=== PATIENT | female | born 1960 | race Caucasian/White ===

== ENCOUNTER 2023-05-08 14:31 | Observation (INO) | payer BC ==
--- NOTE | 2023-05-08 15:35 | ED ---
General Adult HPI - General Source: patient Mode of arrival: ambulatory Limitations: no limitations <Donna Conway - Last Filed: 05/08/23 15:32> - General Source: patient, RN notes reviewed <Carmine Smart - Last Filed: 05/08/23 20:28> - General Chief complaint: Shortness of Breath Stated complaint: SOB Time Seen by Provider: 05/08/23 15:30 - History of Present Illness Initial comments: Patient is a 63 year old female who presents to the emergency department for shortness of breath. Patient has COPD on prednisone prescribed by nutrition worker. No chest pain (Donna Conway) Patient is a 63-year-old female with past medical history remarkable for shortness of breath. She has history of COPD, emphysema, single cardiac stent. Presents complaining of exertional dyspnea. Has been on steroids for the last 2 weeks with some improvement in his to she stopped steroids becomes short of breath. He is not typically on oxygen. Denies any lower extremity swelling. Denies any chest pain. Denies abdominal pain, nausea, vomiting. Has no other acute complaints at this time. Presents for further evaluation of this time of concern for COPD exacerbation. Denies any productive cough. Esterase. Denies sick contacts. Normally obtains care in [place]. Patient originally seen as a quick note. (Carmine Smart) - Related Data Home Medications Medication Instructions Recorded Confirmed ALPRAZolam [Xanax] 0.25 mg PO BID PRN 05/08/23 05/08/23 Cholecalciferol (Vitamin D3) 125 mcg PO MOWEFR 05/08/23 05/08/23 [Vitamin D3 (125 MCG = 5,000 IU)] Escitalopram [Lexapro] 20 mg PO DAILY 05/08/23 05/08/23 Famotidine [Pepcid] 20 mg PO BID 05/08/23 05/08/23 Famotidine [Pepcid] 20 mg PO BID 05/08/23 05/08/23 Fluticasone/Vilanterol [Breo 1 puff INHALATION RT-DAILY 05/08/23 05/08/23 Ellipta 100-25 Mcg Inhaler] Ipratropium-Albuterol Nebulize 3 ml INHALATION RT-Q4H PRN 05/08/23 05/08/23 [Duoneb 0.5 mg-3 mg/3 ml Soln] Levothyroxine Sodium [Synthroid] 125 mg PO DAILY 05/08/23 05/08/23 Metoprolol Succinate (ER) [Toprol 25 mg PO DAILY 05/08/23 05/08/23 Xl] Rosuvastatin Calcium 5 mg PO DAILY 05/08/23 05/08/23 Ticagrelor [Brilinta] 90 mg PO BID 05/08/23 05/08/23 Zinc Gluconate [Zinc] 50 mg PO DAILY 05/08/23 05/08/23 buPROPion XL [Wellbutrin XL] 150 mg PO DAILY 05/08/23 05/08/23 predniSONE See Taper PO DIRECTED 05/08/23 05/08/23 Allergies Allergy/AdvReac Type Severity Reaction Status Date / Time No Known Allergies Allergy Verified 05/08/23 16:49 Review of Systems ROS Other: All systems not noted in ROS Statement are negative. <Donna Conway - Last Filed: 05/08/23 15:32> ROS Other: All systems not noted in ROS Statement are negative. <Carmine Smart - Last Filed: 05/08/23 20:28> ROS Statement: Those systems with pertinent positive or pertinent negative responses have been documented in the HPI. Review of Systems: CONST: Denies fever EYES: Denies blurry vision ENT: Denies nasal congestion C/V: Denies Chest pain RESP: Endorses dyspnea GI: Denies abdominal pain : Denies dysuria SKIN: Denies rash. MSK: Denies joint pain. NEURO: Denies headache (Carmine Smart) Past Medical History Past Medical History: COPD, Myocardial Infarction (CT), Thyroid Disorder History of Any Multi-Drug Resistant Organisms: None Reported Past Surgical History: Heart Catheterization With Stent Past Psychological History: No Psychological Hx Reported Smoking Status: Current every day smoker Past Alcohol Use History: Occasional Past Drug Use History: None Reported <Donna Conway - Last Filed: 05/08/23 15:32> General Exam Limitations: no limitations <Donna Conway - Last Filed: 05/08/23 15:32> <Carmine Smart - Last Filed: 05/08/23 20:28> - General Exam Comments Initial Comments: Visual Physical Exam Vital signs reviewed General: Well-appearing, nontoxic, no acute distress. Head: Normocephalic, atraumatic Eyes: PERRLA, EOMI ENT: Airway patent Chest: Nonlabored breathing Skin: No visual rash, normal skin tone Neuro: Alert and oriented 3 Musculoskeletal: No gross abnormalities (Donna Conway) General: Appears in no acute distress. HEAD: Normal with no signs of head trauma. EYES: PERRLA, EOMI, conjunctiva normal, no discharge. ENT: Hearing grossly intact, normal oropharynx. RESPIRATORY: End expiratory wheezing. Minimal hypoxia at rest, with pulse ox 93-96%. No dyspnea with discussion a short sentences. C/V: Regular rate and rhythm. S1 and S2 auscultated, no edema, peripheral pulses 2+ and intact throughout ABD: Abd is soft, nontender, nondistended EXT: Normal range of motion, no obvious deformity SKIN: No rashes or lesions observed on exposed skin. NEURO: Alert and oriented 4. (Carmine Smart) Course Vital Signs 05/08/23 05/08/23 05/08/23 14:49 16:32 16:42 Temperature 98.0 F 98.9 F Pulse Rate 102 H 84 83 Respiratory 22 20 Rate Blood Pressure 148/79 129/68 O2 Sat by Pulse 93 L 95 Oximetry 05/08/23 05/08/23 05/08/23 16:51 16:52 17:01 Temperature Pulse Rate 84 84 86 Respiratory Rate Blood Pressure O2 Sat by Pulse Oximetry 05/08/23 05/08/23 05/08/23 17:08 17:30 17:34 Temperature Pulse Rate 93 Respiratory 19 Rate Blood Pressure 130/75 O2 Sat by Pulse 96 89 L 96 Oximetry 05/08/23 05/08/23 05/08/23 18:09 19:03 19:37 Temperature 98.9 F Pulse Rate 98 93 102 H Respiratory 20 18 Rate Blood Pressure 128/68 126/67 O2 Sat by Pulse 93 L 93 L Oximetry 05/08/23 19:47 Temperature Pulse Rate 103 H Respiratory Rate Blood Pressure O2 Sat by Pulse Oximetry Medical Decision Making <Donna Conway - Last Filed: 05/08/23 15:32> - Lab Data Result diagrams: 05/08/23 15:52 05/08/23 15:52 - EKG Data -: EKG Interpreted by [place] <Carmine Smart - Last Filed: 05/08/23 20:28> - Medical Decision Making I performed the QuickNote portion of this chart - Donna Conway PA-C (Donna Conway) Was pt. sent in by a medical professional or institution (TOMMIE Clark, MANAGING SUPERVISOR, urgent care, hospital, or senior living...) When possible be specific @ -No Did you speak to anyone other than the patient for history (EMS, parent, family, police, friend...)? What history was obtained from this source @ -No Did you review nursing and triage notes (agree or disagree)? Why? @ -I reviewed and agree with nursing and triage notes Were old charts reviewed (outside hosp., previous admission, EMS record, old EKG, old radiological studies, urgent care reports/EKG's, senior living records)? Report findings @ -Reviewed quick note Differential Diagnosis (chest pain, altered mental status, abdominal pain women, abdominal pain men, vaginal bleeding, weakness, fever, dyspnea, syncope, headache, dizziness, GI bleed, back pain, seizure, CVA, palpatations, mental health, musculoskeletal)? @ -Differential Dyspnea: Coronary syndrome, arrhythmia, tamponade, asthma, COPD, pulmonary embolism, pneumonia, pneumothorax, pulmonary effusion, anaphylaxis, diabetic ketoacidosis, flailed chest, pulmonary contusion, diaphragmatic rupture, anemia, neuromuscu lar, this is not meant to be an all-inclusive list. EKG interpreted by me (3pts min.). @ -As above X-rays interpreted by me (1pt min.). @ -Chest x-ray shows chronic known COPD changes with right upper lobe scarring that the patient is well aware of. CT interpreted by me (1pt min.). @ -None done U/S interpreted by me (1pt. min.). @ -None done What testing was considered but not performed or refused? (CT, X-rays, U/S, labs)? Why? @ -None What meds were considered but not given or refused? Why? @ -None Did you discuss the management of the patient with other professionals (professionals i.e. TOMMIE Clark, MANAGING SUPERVISOR, lab, RT, psych nurse, elementary school social worker, pharmaceutical analyst, teacher, telecommunications officer, case checker)? Give summary @ -Discussed with the admitting team [facility] who accepted the patient. Was smoking cessation discussed for >3mins.? @ -No Was critical care preformed (if so, how long)? @ -No Were there social determinants of health that impacted care today? How? (Homelessness, low income, unemployed, alcoholism, drug addiction, transporta tion, low edu. Level, literacy, decrease access to med. care, snf, rehab)? @ -No Was there de-escalation of care discussed even if they declined (Discuss DNR or withdrawal of care, Hospice)? DNR status @ -No What co-morbidities impacted this encounter? (DM, HTN, Smoking, COPD, CAD, Cancer, CVA, ARF, Chemo, Hep., AIDS, mental health diagnosis, sleep apnea, morbid obesity)? @ -COPD Was patient admitted / discharged? Hospital course, mention meds given and route, prescriptions, significant lab abnormalities, going to OR and other pertinent info. @ -Based on the patient's presentation and physical exam, she presents with a somewhat acute on chronic shortness of breath. Was being treated for COPD back in [place] for the last 2-3 weeks and recently flew here from there. After she stopped her steroid burst, she began having worsening shortness of breath again. Presents for further evaluation. We will obtain screening EKG as well as basic labs, suffered swab, chest x-ray. This was all started in triage as a quick note. Patient will be given IV Solu-Medrol as well as multiple breathing treatments. She was in agreement this plan. Vital signs are within acceptable limits at this time. Patient's chest x-ray shows the chronic known findings that I discussed with the patient. She states she has received thorough workup for them. Patient's labs are within acceptable limits. Covid, flu, RSV negative. On reevaluation, with ambulatory pulse ox patient's oxygen drops to 88%, and she still is mildly wheezy despite multiple breathing treatments. Is improved on room air at rest to 95-97%. I discussed the findings with the patient. I would like to admitted to the hospital after discussing possible discharge home and she was in agreement with plan. She'll be admitted to observation on IV steroids with breathing treatments and pulmonology consult. She was in agreement with this plan. I spoke with the admitting team, [facility] who accepted the patient. Undiagnosed new problem with uncertain prognosis? @ -No Drug Therapy requiring intensive monitoring for toxicity (Heparin, Nitro, Insulin, Cardizem)? @ -No Were any procedures done? @ -No Diagnosis/symptom? @ -COPD Acute, or Chronic, or Acute on Chronic? @ -Acute on chronic Uncomplicated (without systemic symptoms) or Complicated (systemic symptoms)? @ -Complicated Side effects of treatment? @ -none Exacerbation, Progression, or Severe Exacerbation] @ -Exacerbation Poses a threat to life or bodily function? @ -Yes (Carmine Smart) - Lab Data Lab Results 05/08/23 05/08/23 05/08/23 Range/Units 15:52 15:52 16:29 WBC 9.1 (3.8-10.6) k/uL RBC 4.40 (3.80-5.40) m/uL Hgb 14.2 (11.4-16.0) gm/dL Hct 42.6 (34.0-46.0) % MCV 96.7 (80.0-100.0) fL MCH 32.2 (25.0-35.0) pg MCHC 33.3 (31.0-37.0) g/dL RDW 14.1 (11.5-15.5) % Plt Count 432 (150-450) k/uL MPV 6.7 Neutrophils % 86 % Lymphocytes % 7 % Monocytes % 3 % Eosinophils % 3 % Basophils % 0 % Neutrophils # 7.9 H (1.3-7.7) k/uL Lymphocytes # 0.6 L (1.0-4.8) k/uL Monocytes # 0.3 (0-1.0) k/uL Eosinophils # 0.3 (0-0.7) k/uL Basophils # 0.0 (0-0.2) k/uL Sodium 131 L (137-145) mmol/L Potassium 4.5 (3.5-5.1) mmol/L Chloride 98 (98-107) mmol/L Carbon Dioxide 23 (22-30) mmol/L Anion Gap 10 mmol/L BUN 13 (7-17) mg/dL Creatinine 0.70 (0.52-1.04) mg/dL Est GFR (CKD-EPI)AfAm >90 (>60 ml/min/1.73 sqM) Est GFR (CKD-EPI)NonAf >90 (>60 ml/min/1.73 sqM) Glucose 182 H (74-99) mg/dL Calcium 9.5 (8.4-10.2) mg/dL Total Bilirubin 0.5 (0.2-1.3) mg/dL AST 43 H (14-36) U/L ALT 30 (4-34) U/L Alkaline Phosphatase 78 (38-126) U/L Total Protein 6.9 (6.3-8.2) g/dL Albumin 3.8 (3.5-5.0) g/dL Influenza Type A (PCR) Not Detected (Not Detectd) Influenza Type B (PCR) Not Detected (Not Detectd) RSV (PCR) Not Detected (Not Detectd) SARS-CoV-2 (PCR) Not Detected (Not Detectd) - EKG Data EKG Comments: 12-lead Electrocardiogram Interpretation Note EKG was reviewed and interpreted by myself. 12-lead ECG performed at 1536 is interpreted by me as revealing normal sinus rhythm at a rate of 88 beats per minute. [place] is normal. SD Intervals 141 ms, QRS duration is 77 ms, QTc is 393 ms.. There were no ST or T wave abnormalities to suggest myocardial ischemia or injury. R wave progression across the precordium was satisfactory. By my interpretation this EKG is non-diagnostic for acute ischemia. (Carmine Smart) Disposition <Donna Conway - Last Filed: 05/08/23 15:32> Time of Disposition: 17:35 <Carmine Smart - Last Filed: 05/08/23 20:28> Clinical Impression: COPD (chronic obstructive pulmonary disease) Disposition: ADMITTED IP TO THIS HOSP Condition: Stable
[2023-05-08 16:00] LABS: Basophils % (A) 0 %; Eosinophils # (A) 0.3 k/uL (0-0.7); Eosinophils % (A) 3 %; HCT 42.6 % (34.0-46.0); HGB 14.2 gm/dL (11.4-16.0); Lymphocytes # (A) 0.6 k/uL (1.0-4.8); Lymphocytes % (A) 7 %; MCH 32.2 pg (25.0-35.0); MCHC 33.3 g/dL (31.0-37.0); MCV 96.7 fL (80.0-100.0); Mean Platelet Volume 6.7; Monocytes # (A) 0.3 k/uL (0-1.0); Monocytes % (A) 3 %; Neutrophils # (A) 7.9 k/uL (1.3-7.7); Neutrophils % (A) 86 %; Platelet Count 432 k/uL (150-450); RDW 14.1 % (11.5-15.5); WBC 9.1 k/uL (3.8-10.6)
--- NOTE | 2023-05-08 16:08 | XR ---
EXAMINATION TYPE: XR chest 2V DATE OF EXAM: 05/08/2023 4:01 PM COMPARISON: None TECHNIQUE: XR chest 2V Frontal and lateral views of the chest. CLINICAL INDICATION:Female, 63 years old with history of shortness of breath; FINDINGS: Lungs/Pleura: Right upper lobe scarring/consolidation identified. Hyperinflation. No pleural effusion or pneumothorax. Pulmonary vascularity: Unremarkable. Heart/mediastinum: Mediastinal shift to the right. Musculoskeletal: No acute osseous pathology. IMPRESSION: COPD changes with right upper lobe scarring/consolidation with associated volume loss. Underlying niurka plasm is not excluded. Consider further evaluation with CT chest unless prior imaging could be made a vailable.
[2023-05-08] MEDS ORDERED: IPRATROPIUM-ALBUTEROL 3 ML NEB INHALATION STA ×2 (16:14→16:15)
[2023-05-08] MEDS ORDERED: methylPREDNISolone SOD SUCCI 125 MG/2 ML VIAL IV STA (16:14)
[2023-05-08 16:28] LABS: ALT 30 U/L (4-34); AST 43 U/L (14-36); African American GFR (CKD) >90 (>60 ml/min/1.73 sqM); Albumin 3.8 g/dL (3.5-5.0); Alkaline Phosphatase 78 U/L (38-126); Anion Gap 10 mmol/L; Blood Urea Nitrogen 13 mg/dL (7-17); Calcium 9.5 mg/dL (8.4-10.2); Carbon Dioxide 23 mmol/L (22-30); Chloride 98 mmol/L (98-107); Glucose 182 mg/dL (74-99); Non-African American GFR(CKD) >90 (>60 ml/min/1.73 sqM); Potassium 4.5 mmol/L (3.5-5.1); Sodium 131 mmol/L (137-145); Total Bilirubin 0.5 mg/dL (0.2-1.3); Total Protein 6.9 g/dL (6.3-8.2)
[2023-05-08 16:33] VITALS: TEMP 98.9
[2023-05-08] MEDS ORDERED: NALOXONE 0.4 MG/ML 1 ML VIAL IV PRN (17:50)
[2023-05-08] MEDS: IPRATROPIUM-ALBUTEROL 3 ML NEB INHALATION SCH (19:37)
[2023-05-08] MEDS ORDERED: IPRATROPIUM-ALBUTEROL 3 ML NEB INHALATION PRN (20:24)
[2023-05-08] MEDS ORDERED: ALPRAZolam 0.25 MG TAB PO PRN (20:24)
[2023-05-08] MEDS ORDERED: methylPREDNISolone SOD SUCCI 40 MG/ML 1 ML VIAL IV SCH (21:00)
[2023-05-08] MEDS: METOPROLOL SUCCINATE (ER) 25 MG TAB.ER.24H PO SCH (21:06)
[2023-05-08] MEDS: FAMOTIDINE 20 MG TAB PO SCH (21:06)
[2023-05-08] MEDS: TICAGRELOR 90 MG TAB PO SCH (21:06)
[2023-05-09] MEDS: IPRATROPIUM-ALBUTEROL 3 ML NEB INHALATION SCH ×3 (00:31→08:28)
--- NOTE | 2023-05-09 04:12 | P.CNPUL ---
History of Present Illness Consult date: 05/09/23 Requesting physician: Carmine Smart Reason for consult: COPD Chief complaint: Shortness of breath History of present illness: I am seeing this patient in consultation today 05/09/2023 in the emergency room for suspected acute COPD exacerbation. Patient is a 63-year-old white female with past medical history significant for COPD, chronic nicotine dependence, hypertension, hyperlipidemia, coronary artery disease with previous coronary stent, GERD, hypothyroidism. Patient reportedly resides in [place], and follows with a local floor layer. She is in [place] visiting her children. She is on a combination of Breo-ellipta, when necessary Ventolin inhaler, and albuterol nebulizations [id number]. She continues to smoke approximately 5 cigarettes per day. The patient has reportedly had a recent hospital admission in [place], and was discharged on April 09. She was treated for a COPD exacerbation, and discharged on a prednisone taper. She states that her shortness of breath returned once tapering off her steroids. She says that the shortness breath has progressively worsened, and she came to the emergency room yesterday afternoon. She denies any cough, fever, chills, chest pain, hemoptysis. She is currently sitting up in bed, on room air, in no acute distress. Chest x-ray on arrival shows COPD-like changes with right upper lobe scarring/consolidation with associated volume loss. Underlying neoplasm was not excluded. The patient states that her established floor layer is following this, and states that she has had biopsies of this lesion in the past. Denies any history of cancer. She has a scheduled follow-up appointment with her floor layer in May. CBC on arrival was unremarkable. No leukocytosis. Patient is afebrile. BMP on arrival was also unremarkable. Negative for COVID- 19, RSV, influenza. Patient has been started on a combination of dual nebs, Symbicort inhaler, and IV Solu-Medrol. Patient states that she is already feeling better. She is on room air. Not particularly wheezy on auscultation. We will likely taper steroids. Vital signs are stable. Review of Systems REVIEW OF SYSTEMS: CONSTITUTIONAL: Denies any recent significant weight loss or weight gain. EYES: Denies change in vision. EARS, NOSE, MOUTH, THROAT: Denies headaches, denies sore throat. CARDIOVASCULAR: Denies chest pain, palpitations or syncopal episodes. RESPIRATORY: See HPI GASTROINTESTINAL: Denies change in appetite, abdominal pain, nausea and vomiting, or diarrhea GENITOURINARY: Denies hematuria, denies infections. MUSKULOSKELETAL: Denies pain, denies swelling. INTEGUMENTARY: Denies rash, denies eczema. NEUROLOGICAL: Denies recent memory loss, no recent seizure activity. PSYCHIATRIC: Denies anxiety, denies depression. HEMATOLOGIC/LYMPHATIC: Denies anemia, denies enlarged lymph node Past Medical History Past Medical History: COPD, Myocardial Infarction ([place]), Thyroid Disorder History of Any Multi-Drug Resistant Organisms: None Reported Past Surgical History: Heart Catheterization With Stent Past Psychological History: No Psychological Hx Reported Smoking Status: Current every day smoker Past Alcohol Use History: Occasional Past Drug Use History: None Reported Medications and Allergies Home Medications Medication Instructions Recorded Confirmed Type ALPRAZolam [Xanax] 0.25 mg PO BID PRN 05/08/23 05/08/23 History Cholecalciferol (Vitamin D3) 125 mcg PO MOWEFR 05/08/23 05/08/23 History [Vitamin D3 (125 MCG = 5,000 IU)] Escitalopram [Lexapro] 20 mg PO DAILY 05/08/23 05/08/23 History Famotidine [Pepcid] 20 mg PO BID 05/08/23 05/08/23 History Famotidine [Pepcid] 20 mg PO BID 05/08/23 05/08/23 History Fluticasone/Vilanterol [Breo 1 puff INHALATION RT-DAILY 05/08/23 05/08/23 History Ellipta 100-25 Mcg Inhaler] Ipratropium-Albuterol Nebulize 3 ml INHALATION RT-Q4H PRN 05/08/23 05/08/23 History [Duoneb 0.5 mg-3 mg/3 ml Soln] Levothyroxine Sodium [Synthroid] 125 mg PO DAILY 05/08/23 05/08/23 History Metoprolol Succinate (ER) [Toprol 25 mg PO DAILY 05/08/23 05/08/23 History Xl] Rosuvastatin Calcium 5 mg PO DAILY 05/08/23 05/08/23 History Ticagrelor [Brilinta] 90 mg PO BID 05/08/23 05/08/23 History Zinc Gluconate [Zinc] 50 mg PO DAILY 05/08/23 05/08/23 History buPROPion XL [Wellbutrin XL] 150 mg PO DAILY 05/08/23 05/08/23 History predniSONE See Taper PO DIRECTED 05/08/23 05/08/23 History Allergies Allergy/AdvReac Type Severity Reaction Status Date / Time No Known Allergies Allergy Verified 05/08/23 16:49 Physical Exam Vitals: Vital Signs Temp Pulse Resp BP Pulse Ox 05/09/23 03:34 73 16 129/74 93 L 05/09/23 01:11 88 18 125/74 100 05/09/23 00:41 83 05/09/23 00:31 85 05/08/23 22:48 80 18 108/56 93 L 05/08/23 21:10 101 H 18 120/55 96 05/08/23 19:47 103 H 05/08/23 19:37 102 H 05/08/23 19:03 93 18 126/67 93 L 05/08/23 18:09 98.9 F 98 20 128/68 93 L 05/08/23 17:34 96 05/08/23 17:30 89 L 05/08/23 17:08 93 19 130/75 96 05/08/23 17:01 86 05/08/23 16:52 84 05/08/23 16:51 84 05/08/23 16:42 83 05/08/23 16:32 98.9 F 84 20 129/68 95 05/08/23 14:49 98.0 F 102 H 22 148/79 93 L Intake and Output 05/08/23 05/08/23 05/09/23 14:59 22:59 06:59 Other: Weight 48.081 kg GENERAL EXAM: Alert, 63-year-old white female appearing stated age, comfortable in no apparent distress. HEAD: Normocephalic and atraumatic EYES: Normal reaction of pupils, equal size. NOSE: Clear with pink turbinates. THROAT: No erythema or exudates. NECK: No masses, no JVD. CHEST: No chest wall deformity. LUNGS: Equal air entry with diminished lung sounds throughout. no crackles, wheeze, rhonchi or focal dullness. On room air. No conversational dyspnea or accessory muscle use.. CVS: S1 and S2 normal with no audible murmur, regular rhythm. No extra heart sounds ABDOMEN: No hepatosplenomegaly, active bowel sounds, no guarding or rigidity. SPINE: No scoliosis or deformity SKIN: No rashes CENTRAL NERVOUS SYSTEM: No focal deficits, tone is normal in all 4 extremities. EXTREMITIES: There is no peripheral edema, clubbing, or cyanosis. Peripheral pulses are intact. Results - Laboratory Findings CBC and BMP: 05/08/23 15:52 05/08/23 15:52 Abnormal lab findings: Abnormal Labs 05/08/23 05/08/23 15:52 15:52 Neutrophils # 7.9 H Lymphocytes # 0.6 L Sodium 131 L Glucose 182 H AST 43 H - Diagnostic Findings Chest x-ray: image reviewed Assessment and Plan Assessment: Acute COPD exacerbation, hest x-ray on arrival shows COPD-like changes with right upper lobe scarring/consolidation with associated volume loss. Underlying neoplasm was not excluded. The patient states that her established pulmonologis t is following this, and states that she has had biopsies of this lesion in the past. Negative for influenza, RSV, COVID-19. Hyperglycemia, related to steroids Essential hypertension Hyperlipidemia Coronary artery disease with previous coronary stenting GERD Hypothyroidism Chronic nicotine dependence Plan: Patient's medications, labs, chest x-ray reviewed Continue combination of DuoNeb's, Symbicort inhaler, and start prednisone taper On room air May follow-up with her established floor layer in regards to chronic right upper lobe scarring Smoking cessation counseling performed Nicotine replacement offered Appears hemodynamically stable Anticipate discharge in the next 24 hours. I have personally seen and examined the patient, performed the documentation and the assessment and plan as written. Number of minutes spent on the visit:20 Time with Patient: Greater than 30
[2023-05-09 05:19] VITALS: RESP 18
[2023-05-09 06:22] VITALS: BP 144/80
[2023-05-09] MEDS ORDERED: LEVOTHYROXINE 125 MCG TAB PO SCH (06:30)
[2023-05-09] MEDS ORDERED: DEXTROSE 50% SYRINGE 50 ML IVP PRN ×2 (07:16)
[2023-05-09] MEDS ORDERED: INSULIN ASPART (NovoLOG) 100 UNIT/ML VIAL SQ SCH (07:30)
[2023-05-09] MEDS ORDERED: SYMBICORT 160-4.5 MCG INHALER INHALATION SCH (08:00)
[2023-05-09] MEDS ORDERED: SYMBICORT 80-4.5 MCG INHALER INHALATION SCH (08:00)
--- NOTE | 2023-05-09 08:07 | P.HPIM ---
History of Present Illness Please consider this note asked combined H&P and discharge summary This is a pleasant 63 years old female with past medical history of nicotine dependence, COPD, coronary artery disease status post stenting and hypothyroidism Patient presents because of dyspnea worsen with exertion Patient says that she has shortness of breath for a few weeks and is getting worse over the last few days, this morning she started having dry cough in. She denies abdominal pain or chest pain. No urinary symptoms. Smokes about 5 cigarettes per day. She was counseled to quit and she agrees but declines nicotine patch. She denies alcohol or illicit drugs. She states that she is aware about her lesion in the right upper lung and that her milled rice broker follow-up lesion and she intends to see him when she goes back to [place] next week Patient is afebrile and vital signs stable and he is saturating 93% on room air Labs are unremarkable CBC, BMP, liver enzymes except for mildly low sodium 131 and glucose 182 Viruses and detected including influenza, RSV, coronavirus EKG showing T-wave inversion in V1 and V2, no other significant ST-T changes, sinus rhythm at 88 Chest x-ray: COPD changes, I reviewed myself. Radiology report there is right upper lobe scarring/consolidation with associated volume loss underlying neoplasm is not excluded Review of Systems CONSTITUTIONAL: No fever, no malaise, no fatigue. HEENT: No recent visual problems or hearing problems. Denied any sore throat. CARDIOVASCULAR: No orthopnea, PND, no palpitations, no syncope. PULMONARY: No chest wall tenderness, no hemoptysis. GASTROINTESTINAL: No diarrhea, no nausea, no vomiting, no abdominal pain. Normoactive bowel sounds. NEUROLOGICAL: No headaches, no weakness, no numbness. HEMATOLOGICAL: Denies any bleeding or petechiae. GENITOURINARY: Denies any burning micturition, frequency, or urgency. MUSCULOSKELETAL/RHEUMATOLOGICAL: Denies any joint pain, swelling, or any muscle pain. ENDOCRINE: Denies any polyuria or polydipsia. Past Medical History Past Medical History: COPD, Myocardial Infarction ([place]), Thyroid Disorder History of Any Multi-Drug Resistant Organisms: None Reported Past Surgical History: Heart Catheterization With Stent Past Psychological History: No Psychological Hx Reported Smoking Status: Current every day smoker Past Alcohol Use History: Occasional Past Drug Use History: None Reported Medications and Allergies Home Medications Medication Instructions Recorded Confirmed Type ALPRAZolam [Xanax] 0.25 mg PO BID PRN 05/08/23 05/08/23 History Cholecalciferol (Vitamin D3) 125 mcg PO MOWEFR 05/08/23 05/08/23 History [Vitamin D3 (125 MCG = 5,000 IU)] Escitalopram [Lexapro] 20 mg PO DAILY 05/08/23 05/08/23 History Famotidine [Pepcid] 20 mg PO BID 05/08/23 05/08/23 History Famotidine [Pepcid] 20 mg PO BID 05/08/23 05/08/23 History Fluticasone/Vilanterol [Breo 1 puff INHALATION RT-DAILY 05/08/23 05/08/23 History Ellipta 100-25 Mcg Inhaler] Levothyroxine Sodium [Synthroid] 125 mg PO DAILY 05/08/23 05/08/23 History Metoprolol Succinate (ER) [Toprol 25 mg PO DAILY 05/08/23 05/08/23 History XL] Rosuvastatin Calcium 5 mg PO DAILY 05/08/23 05/08/23 History Ticagrelor [Brilinta] 90 mg PO BID 05/08/23 05/08/23 History Zinc Gluconate [Zinc] 50 mg PO DAILY 05/08/23 05/08/23 History buPROPion XL [Wellbutrin XL] 150 mg PO DAILY 05/08/23 05/08/23 History Ipratropium-Albuterol Nebulize 3 ml INHALATION RT-Q4H PRN #1 each 05/09/23 Rx [Duoneb 0.5 mg-3 mg/3 ml Soln] predniSONE 10 mg PO DIRECTED #40 tab 05/09/23 Rx Allergies Allergy/AdvReac Type Severity Reaction Status Date / Time No Known Allergies Allergy Verified 05/08/23 16:49 Physical Exam Vitals: Vital Signs Temp Pulse Resp BP Pulse Ox 05/09/23 06:20 95 18 144/80 95 05/09/23 05:46 90 05/09/23 05:36 82 05/09/23 05:17 71 18 125/90 93 L 05/09/23 03:34 73 16 129/74 93 L 05/09/23 01:11 88 18 125/74 100 05/09/23 00:41 83 05/09/23 00:31 85 05/08/23 22:48 80 18 108/56 93 L 05/08/23 21:10 101 H 18 120/55 96 05/08/23 19:47 103 H 05/08/23 19:37 102 H 05/08/23 19:03 93 18 126/67 93 L 05/08/23 18:09 98.9 F 98 20 128/68 93 L 05/08/23 17:34 96 05/08/23 17:30 89 L 05/08/23 17:08 93 19 130/75 96 05/08/23 17:01 86 05/08/23 16:52 84 05/08/23 16:51 84 05/08/23 16:42 83 05/08/23 16:32 98.9 F 84 20 129/68 95 05/08/23 14:49 98.0 F 102 H 22 148/79 93 L GENERAL: The patient is alert and oriented x3, not in any acute distress. Well developed, well nourished. HEENT: Pupils are round and equally reacting to light. EOMI. No scleral icterus. No conjunctival pallor. Normocephalic, atraumatic. No pharyngeal erythema. No thyromegaly. CARDIOVASCULAR: S1 and S2 present. No murmurs, rubs, or gallops. -PULMONARY: Chest is clear to auscultation very mild and minimal , bilateral expiratory scattered wheezing , no crackles. ABDOMEN: Soft, nontender, nondistended, normoactive bowel sounds. No palpable organomegaly. MUSCULOSKELETAL: No joint swelling or deformity. EXTREMITIES: No cyanosis, clubbing, or pedal edema. NEUROLOGICAL: Gross neurological examination did not reveal any focal deficits. SKIN: No rashes. no petechiae. Results CBC & Chem 7: 05/08/23 15:52 05/08/23 15:52 Labs: Abnormal Lab Results - Last 24 Hours (Table) 05/08/23 05/08/23 Range/Units 15:52 15:52 Neutrophils # 7.9 H (1.3-7.7) k/uL Lymphocytes # 0.6 L (1.0-4.8) k/uL Sodium 131 L (137-145) mmol/L Glucose 182 H (74-99) mg/dL AST 43 H (14-36) U/L Assessment and Plan Assessment: Acute COPD exacerbation Acute hypoxic respiratory failure, mild. right upper lobe scarring/consolidation with associated volume loss underlying neoplasm is not excluded. Patient is aware with this problem and he follow-up with his milled rice broker in [place] History of coronary artery disease status post stenting Hypothyroidism Plan: Continue with steroids Bronchodilator Pulmonary consult I discussed the case with pulmonary team and their input is appreciated. Pulmonary team has cleared the patient for discharge this morning on tapered to steroids. Labs and medication were reviewed.. Continue same treatment. Continue with symptomatic treatment. Resume home medication. Monitor labs and vitals. DVT and GI prophylaxis. Further recommendations as per clinical course of the patient Patient is medically stable and can be discharged home however she needs follow- up as an outpatient Patient was instructed to follow up with her PCP in one week after discharge Patient also was instructed to follow up with milled rice broker Dr. comer in 1 week after discharge and with her own milled rice broker in [place] in 1-2 weeks when she goes back and she agrees to call me forAppointments She told me she has all her prescription and she wants only that tapered prednisone and duonebs nebulizer prescription which is sent to the pharmacy
[2023-05-09 08:41] VITALS: PULSE 92
[2023-05-09] MEDS ORDERED: METOPROLOL SUCCINATE (ER) 25 MG TAB.ER.24H PO SCH (09:00)
[2023-05-09] MEDS ORDERED: ATORVASTATIN 10 MG TAB PO SCH (09:00)
[2023-05-09] MEDS ORDERED: buPROPion XL 150 MG TAB.ER.24H PO SCH (09:00)
[2023-05-09] MEDS ORDERED: ZINC SULFATE 220 MG CAP PO SCH (09:00)
[2023-05-09] MEDS ORDERED: predniSONE 20 MG TAB PO SCH (09:00)
[2023-05-09 09:20] LABS: Glucose,Whole Blood 112 mg/dL (70-110)
[2023-05-09] MEDS: FAMOTIDINE 20 MG TAB PO SCH (09:21)
[2023-05-09] MEDS: METOPROLOL SUCCINATE (ER) 25 MG TAB.ER.24H PO SCH (09:21)
[2023-05-09] MEDS: TICAGRELOR 90 MG TAB PO SCH (09:21)
[2023-05-09 12:02] LABS: Basophils # (A) 0.01 X 10*3/uL (0.00-0.10); Basophils % (A) 0.2 %; Eosinophils # (A) 0 X 10*3/uL (0.04-0.35); Eosinophils % (A) 0 %; HCT 41.5 % (37.2-46.3); HGB 13.6 d/dL (12.0-15.0); Lymphocytes # (A) 0.81 X 10*3/uL (0.90-5.00); Lymphocytes % (A) 12.7 %; MCH 31.9 pg (27.0-32.0); MCHC 32.8 d/dL (32.0-37.0); MCV 97.2 FL (80.0-97.0); Mean Platelet Volume 8.4 FL (9.5-12.2); Monocytes # (A) 0.14 X 10*3/uL (0.20-1.00); Monocytes % (A) 2.2 %; NRBC Per 100 WBC 0 X 10*3/uL (0.00-0.01); Neutrophils # (A) 5.34 X 10*3/uL (1.80-7.70); Neutrophils % (A) 83.8 %; Platelet Count 501 X 10*3/uL (140-440); RBC 4.27 X 10*6/uL (4.10-5.20); RDW 14.9 % (11.5-14.5); WBC 6.37 X 10*3/uL (4.50-10.00)
[2023-05-09 12:09] LABS: BUN/Creat Ratio 13.14 Ratio (12.00-20.00); Blood Urea Nitrogen 9.2 mg/dL (9.0-27.0); Calcium 9.6 mg/dL (8.7-10.3); Carbon Dioxide 23.9 mmol/L (21.6-31.8); Chloride 99 mmol/L (96-109); Glucose 113 mg/dL (70-110); Potassium 4.4 mmol/L (3.5-5.5); Sodium 135 mmol/L (135-145)
== END 2023-05-09 10:04 | disposition home or self-care (01) ==
LOC: EC 14:31 → 6NMEDSUR 17:50
PROVIDERS: ADMIT Hospitalist; ATTEND Hospitalist
DX: J44.1 Chronic obstructive pulmonary disease with (acute) exacerbation (principal); J96.01 Acute respiratory failure with hypoxia; R73.9 Hyperglycemia, unspecified; T38.0X5A Adverse effect of glucocorticoids and synthetic analogues, initial encounter; I10 Essential (primary) hypertension; E78.5 Hyperlipidemia, unspecified; I25.10 Atherosclerotic heart disease of native coronary artery without angina pectoris; K21.9 Gastro-esophageal reflux disease without esophagitis; E03.9 Hypothyroidism, unspecified; I25.2 Old myocardial infarction; F17.210 Nicotine dependence, cigarettes, uncomplicated; Z95.5 Presence of coronary angioplasty implant and graft; Z79.899 Other long term (current) drug therapy; Z79.02 Long term (current) use of antithrombotics/antiplatelets; Z79.52 Long term (current) use of systemic steroids; Z20.822 Contact with and (suspected) exposure to COVID-19
CPT/HCPCS: 96376; 96374; 99285; 36415; 94640 ×3; 93005; 80053; 80048; 85025 ×2; 87636; 71046; G0378 ×2; J2920; J2930; J7512

== ENCOUNTER 2025-01-08 21:47 | Inpatient (IN) | payer BC ==
[2025-01-08] MEDS: methylPREDNISolone SOD SUCCI 125 MG/2 ML VIAL IV STA (23:18)
[2025-01-08] MEDS: MAGNESIUM SULFATE-D5W PMX 1 GM in DEXTROSE/WATER 1 100ML.BAG IVPB ONE (23:22)
[2025-01-08 23:29] LABS: Basophils # (A) 0.04 10*3/uL (0.00-0.10); Basophils % (A) 0.5 %; Eosinophils # (A) 0.02 10*3/uL (0.04-0.35); Eosinophils % (A) 0.3 %; HCT 38.1 % (37.2-46.3); HGB 13.1 g/dL (12.0-15.0); Lymphocytes # (A) 1.13 10*3/uL (0.90-5.00); Lymphocytes % (A) 14.9 %; MCH 32.5 pg (27.0-32.0); MCHC 34.4 g/dL (32.0-37.0); MCV 94.5 fL (80.0-97.0); Mean Platelet Volume 8.3 fL (9.5-12.2); Monocytes # (A) 0.74 10*3/uL (0.20-1.00); Monocytes % (A) 9.8 %; Neutrophils # (A) 5.62 10*3/uL (1.80-7.70); Neutrophils % (A) 74.1 %; Platelet Count 306 10*3/uL (140-440); RBC 4.03 10*6/uL (4.10-5.20); RDW 14.6 % (11.5-14.5); WBC 7.58 10*3/uL (4.50-10.00)
[2025-01-08] MEDS: IPRATROPIUM-ALBUTEROL 3 ML NEB INHALATION STA (23:44)
[2025-01-08 23:47] LABS: African American GFR (CKD) >90 (>60 ml/min/1.73 sqM); Anion Gap 5 mmol/L; Carbon Dioxide 23 mmol/L (22-30); Chloride 97 mmol/L (98-107); Glucose 86 mg/dL (74-99); Non-African American GFR(CKD) 78 (>60 ml/min/1.73 sqM); Potassium 4.7 mmol/L (3.5-5.1); Sodium 125 mmol/L (137-145); Total Protein 6.8 g/dL (6.3-8.2)
[2025-01-08 23:48] LABS: ALT 23 U/L (4-34); AST 39 U/L (14-36); Alkaline Phosphatase 48 U/L (38-126); Blood Urea Nitrogen 11 mg/dL (7-17); Calcium 9.6 mg/dL (8.4-10.2); Total Bilirubin 0.5 mg/dL (0.2-1.3)
[2025-01-09 00:02] LABS: Influenza A Not Detected (Not Detectd); Influenza B Not Detected (Not Detectd); RSV Detected (Not Detectd)
--- NOTE | 2025-01-09 01:21 | ED ---
SOB HPI - General Chief Complaint: Shortness of Breath Stated Complaint: JEWELL Time Seen by Provider: 01/08/25 21:50 Source: patient Mode of arrival: wheelchair Limitations: no limitations - History of Present Illness Initial Comments: 64-year-old female with past medical history of coronary disease with stent placement, COPD who wears 2 L home O2 when needed presents to the emergency department with shortness of breath. Patient is from [place]. States that previous to her traveling she did obtain a prescription for prednisone and Levaquin in the event that her breathing got worse. Patient states that she started taking the medications 9 days ago due to cough and increased work of breathing but states that her symptoms have not improved. She does use DuoNebs nebulizer treatments and last treatment was at 7 PM. She also has an albuterol inhaler. Patient does have a history of coronary disease with stent placement. Denies any chest pain. No fevers. Does admit to a cough with green productive sputum. No sick contacts. Recently drove from [place] to [place]. Denies any calf pain or swelling. No history of DVT or PE. Denies any additional symptoms to include abdominal pain, nausea, vomiting. No other alleviating, pre cipitating or modifying factors - Related Data Home Medications Medication Instructions Recorded Confirmed ALPRAZolam [Xanax] 0.25 mg PO BID PRN 01/09/25 01/09/25 Azithromycin [Zithromax] 500 mg PO MOWEFR 01/09/25 01/09/25 Budesonide/Glycopyr/Formoterol 2 puff INHALATION RT-BID 01/09/25 01/09/25 [Breztri Aerosphere Inhaler] Clopidogrel [Plavix] 75 mg PO Q2D@2100 01/09/25 01/09/25 Dupilumab [Dupixent Pen] 300 mg SQ Q14D 01/09/25 01/09/25 Ipratropium-Albuterol Nebulize 3 ml INHALATION RT-Q6H PRN 01/09/25 01/09/25 [Duoneb 0.5 mg-3 mg/3 ml Soln] Levothyroxine Sodium [Synthroid] 62.5 mcg PO MOWEFR 01/09/25 01/09/25 Levothyroxine Sodium [Synthroid] 125 mcg PO SUTUTHSA 01/09/25 01/09/25 Metoprolol Succinate (ER) [Toprol 25 mg PO HS 01/09/25 01/09/25 Xl] Omeprazole 20 mg PO DAILY 01/09/25 01/09/25 Rosuvastatin [Crestor] 20 mg PO HS 01/09/25 01/09/25 buPROPion XL [Wellbutrin XL] 150 mg PO DAILY 01/09/25 01/09/25 Allergies Allergy/AdvReac Type Severity Reaction Status Date / Time No Known Allergies Allergy Verified 01/08/25 21:53 Review of Systems ROS Statement: Those systems with pertinent positive or pertinent negative responses have been documented in the HPI. ROS Other: All systems not noted in ROS Statement are negative. Past Medical History Past Medical History: COPD, Myocardial Infarction ([place]), Thyroid Disorder History of Any Multi-Drug Resistant Organisms: None Reported Past Surgical History: Heart Catheterization With Stent Past Psychological History: No Psychological Hx Reported Smoking Status: Current every day smoker Past Alcohol Use History: Daily Past Drug Use History: None Reported General Exam Limitations: no limitations General appearance: alert, in no apparent distress Head exam: Present: atraumatic, normocephalic, normal inspection Eye exam: Present: normal appearance, PERRL, EOMI. Absent: scleral icterus, conjunctival injection, periorbital swelling ENT exam: Present: normal exam, mucous membranes moist Neck exam: Present: normal inspection. Absent: tenderness, meningismus, lymphadenopathy Respiratory exam: Present: decreased breath sounds. Absent: respiratory distress, wheezes, rales, rhonchi, stridor Cardiovascular Exam: Present: regular rate, normal rhythm, normal heart sounds. Absent: systolic murmur, diastolic murmur, rubs, gallop, clicks GI/Abdominal exam: Present: soft, normal bowel sounds. Absent: distended, tenderness, guarding, rebound, rigid Extremities exam: Present: normal inspection, full ROM, normal capillary refill. Absent: tenderness, pedal edema, joint swelling, calf tenderness Back exam: Present: normal inspection Neurological exam: Present: alert, oriented X3, CN II-XII intact Psychiatric exam: Present: normal affect, normal mood Skin exam: Present: warm, dry, intact, normal color. Absent: rash Course Vital Signs 01/08/25 01/08/25 01/08/25 21:49 23:45 23:52 Temperature 98.5 F Pulse Rate 96 80 84 Pulse Rate [ Pulse Oximetery ] Respiratory 26 H Rate Blood Pressure 141/78 Blood Pressure [Supine] O2 Sat by Pulse 96 Oximetry 01/09/25 01/09/25 00:33 02:23 Temperature 97.7 F Pulse Rate 76 Pulse Rate [ 80 Pulse Oximetery ] Respiratory 20 19 Rate Blood Pressure 150/91 Blood Pressure 157/77 [Supine] O2 Sat by Pulse 98 94 L Oximetry Medical Decision Making - Medical Decision Making Was pt. sent in by a medical professional or institution (, PA, STRATEGIC PARTNER DEVELOPMENT MANAGER, urgent care, hospital, or alf...) When possible be specific @ -No Did you speak to anyone other than the patient for history (EMS, parent, family, police, friend...)? What history was obtained from this source @ -Spoke with her for history Did you review nursing and triage notes (agree or disagree)? Why? @ -I reviewed and agree with nursing and triage notes Were old charts reviewed (outside hosp., previous admission, EMS record, old EKG, old radiological studies, urgent care reports/EKG's, alf records)? Report findings @ -No old charts were reviewed Differential Diagnosis (chest pain, altered mental status, abdominal pain women, abdominal pain men, vaginal bleeding, weakness, fever, dyspnea, syncope, headache, dizziness, GI bleed, back pain, seizure, CVA, palpatations, mental he alth, musculoskeletal)? @ -Differential Dyspnea: Coronary syndrome, arrhythmia, tamponade, asthma, COPD, pulmonary embolism, pneumonia, pneumothorax, pulmonary effusion, anaphylaxis, diabetic ketoacidosis, flailed chest, pulmonary contusion, diaphragmatic rupture, anemia, neuromuscular, this is not meant to be an all-inclusive list. EKG interpreted by me (3pts min.). @ -Yes and demonstrates sinus rhythm with rate of 85. MO interval 133. QRS 80. QTc of 391. No acute ST segment elevations or depressions X-rays interpreted by me (1pt min.). @ -Yes which demonstrates chronic right upper lobe scarring CT interpreted by me (1pt min.). @ -None done U/S interpreted by me (1pt. min.). @ -None done What testing was considered but not performed or refused? (CT, X-rays, U/S, labs)? Why? @ -None What meds were considered but not given or refused? Why? @ -None Did you discuss the management of the patient with other professionals (professionals i.e. DrBonifacio, PA, STRATEGIC PARTNER DEVELOPMENT MANAGER, lab, RT, psych nurse, protective services social worker, backup sawyer, teacher, airconditioning drafting officer, telephonic nurse case manager)? Give summary @ -Spoke with Dr. Merrill for the admission Was smoking cessation discussed for >3mins.? @ -No Was critical care preformed (if so, how long)? @ -No Were there social determinants of health that impacted care today? How? ( Homelessness, low income, unemployed, alcoholism, drug addiction, transportation, low edu. Level, literacy, decrease access to med. care, shelter, rehab)? @ -No Was there de-escalation of care discussed even if they declined (Discuss DNR or withdrawal of care, Hospice)? DNR status @ -No What co-morbidities impacted this encounter? (DM, HTN, Smoking, COPD, CAD, Cancer, CVA, ARF, Chemo, Hep., AIDS, mental health diagnosis, sleep apnea, morbid obesity)? @ -COPD Was patient admitted / discharged? Hospital course, mention meds given and route, prescriptions, significant lab abnormalities, going to OR and other pertinent info. @ -Upon arrival patient seen and evaluated in bed 17. Thorough history and physical exam was performed. IV was established. Laboratory studies are conducted. Chest x-ray was performed. Patient test positive for RSV. She is already on steroids and antibiotics with continued increased work of breathing. I did recommend admission for IV steroids and breathing treatments which patient was agreeable. Spoke with Dr. Merrill for the admission Undiagnosed new problem with uncertain prognosis? @ -No Drug Therapy requiring intensive monitoring for toxicity (Heparin, Nitro, Insulin, Cardizem)? @ -No Were any procedures done? @ -No Diagnosis/symptom? @ -Acute respiratory insufficiency, chronic respiratory failure, acute RSV bronchitis Acute, or Chronic, or Acute on Chronic? @ -Acute on chronic Uncomplicated (without systemic symptoms) or Complicated (systemic symptoms)? @ -Complicated Side effects of treatment? @ -No Exacerbation, Progression, or Severe Exacerbation? @ -Yes Poses a threat to life or bodily function? How? (Chest pain, [place], [place], pneumonia, PE, COPD, DKA, ARF, appy, cholecystitis, CVA, Diverticulitis, Homicidal, Suicidal, threat to staff... and all critical care pts) @ -No - Lab Data Result diagrams: 01/11/25 04:00 01/11/25 04:00 Lab Results 01/08/25 01/08/25 01/08/25 Range/Units 22:15 22:15 22:15 WBC 7.58 (4.50-10.00) 10*3/uL RBC 4.03 L (4.10-5.20) 10*6/uL Hgb 13.1 (12.0-15.0) g/dL Hct 38.1 (37.2-46.3) % MCV 94.5 (80.0-97.0) fL MCH 32.5 H (27.0-32.0) pg MCHC 34.4 (32.0-37.0) g/dL Plt Count 306 (140-440) 10*3/uL MPV 8.3 L (9.5-12.2) fL Immature Gran % (Auto) 0.4 % Neutrophils % 74.1 % Lymphocytes % 14.9 % Monocytes % 9.8 % Eosinophils % 0.3 % Basophils % 0.5 % Immature Gran # 0.03 (0.00-0.04) 10*3/uL Neutrophils # 5.62 (1.80-7.70) 10*3/uL Lymphocytes # 1.13 (0.90-5.00) 10*3/uL Monocytes # 0.74 (0.20-1.00) 10*3/uL Eosinophils # 0.02 L (0.04-0.35) 10*3/uL Basophils # 0.04 (0.00-0.10) 10*3/uL Sodium 125 L (137-145) mmol/L Potassium 4.7 (3.5-5.1) mmol/L Chloride 97 L (98-107) mmol/L Carbon Dioxide 23 (22-30) mmol/L Anion Gap 5 mmol/L BUN 11 (7-17) mg/dL Creatinine 0.81 (0.52-1.04) mg/dL Est GFR (CKD-EPI)AfAm >90 (>60 ml/min/1.73 sqM) Est GFR (CKD-EPI)NonAf 78 (>60 ml/min/1.73 sqM) Glucose 86 (74-99) mg/dL Plasma Lactic Acid [place] 1.5 (0.7-2.0) mmol/L Calcium 9.6 (8.4-10.2) mg/dL Total Bilirubin 0.5 (0.2-1.3) mg/dL AST 39 H (14-36) U/L ALT 23 (4-34) U/L Alkaline Phosphatase 48 (38-126) U/L Troponin I (0.000-0.034) ng/mL Total Protein 6.8 (6.3-8.2) g/dL Albumin 4.0 (3.5-5.0) g/dL Influenza Type A (PCR) (Not Detectd) Influenza Type B (PCR) (Not Detectd) RSV (PCR) (Not Detectd) SARS-CoV-2 (PCR) (Not Detectd) 01/08/25 01/08/25 Range/Units 22:15 23:13 WBC (4.50-10.00) 10*3/uL RBC (4.10-5.20) 10*6/uL Hgb (12.0-15.0) g/dL Hct (37.2-46.3) % MCV (80.0-97.0) fL MCH (27.0-32.0) pg MCHC (32.0-37.0) g/dL Plt Count (140-440) 10*3/uL MPV (9.5-12.2) fL Immature Gran % (Auto) % Neutrophils % % Lymphocytes % % Monocytes % % Eosinophils % % Basophils % % Immature Gran # (0.00-0.04) 10*3/uL Neutrophils # (1.80-7.70) 10*3/uL Lymphocytes # (0.90-5.00) 10*3/uL Monocytes # (0.20-1.00) 10*3/uL Eosinophils # (0.04-0.35) 10*3/uL Basophils # (0.00-0.10) 10*3/uL Sodium (137-145) mmol/L Potassium (3.5-5.1) mmol/L Chloride (98-107) mmol/L Carbon Dioxide (22-30) mmol/L Anion Gap mmol/L BUN (7-17) mg/dL Creatinine (0.52-1.04) mg/dL Est GFR (CKD-EPI)AfAm (>60 ml/min/1.73 sqM) Est GFR (CKD-EPI)NonAf (>60 ml/min/1.73 sqM) Glucose (74-99) mg/dL Plasma Lactic Acid [place] (0.7-2.0) mmol/L Calcium (8.4-10.2) mg/dL Total Bilirubin (0.2-1.3) mg/dL AST (14-36) U/L ALT (4-34) U/L Alkaline Phosphatase (38-126) U/L Troponin I <0.012 (0.000-0.034) ng/mL Total Protein (6.3-8.2) g/dL Albumin (3.5-5.0) g/dL Influenza Type A (PCR) Not Detected (Not Detectd) Influenza Type B (PCR) Not Detected (Not Detectd) RSV (PCR) Detected A (Not Detectd) SARS-CoV-2 (PCR) Not Detected (Not Detectd) Disposition Clinical Impression: COPD exacerbation, RSV bronchitis, Hyponatremia Disposition: ADMITTED IP TO THIS HOSP Condition: Stable Is patient prescribed a controlled substance at d/c from ED?: No Time of Disposition: : Decision to Admit Reason: Admit from EC Decision Date: 01/09/25 Decision Time:
--- NOTE | 2025-01-09 01:29 | XR ---
EXAM: XR Chest, 2 Views CLINICAL HISTORY: ITS.REASON XR Reason: difficulty breathing TECHNIQUE: Frontal and lateral views of the chest. COMPARISON: May 08, 2023. FINDINGS: Lungs: Regarding/consolidation in the RIGHT upper lobe, similar when compared to prior exam from May 08, 2023. Underlying neoplasm not excluded. Pleural space: Unremarkable. No pneumothorax. Heart: Unremarkable. No cardiomegaly. Mediastinum: Unremarkable. Bones/joints: Unremarkable. IMPRESSION: Regarding/consolidation in the RIGHT upper lobe, similar when compared to prior exam from May 08, 2023. Underlying neoplasm not excluded.
[2025-01-09] MEDS ORDERED: NALOXONE 0.4 MG/ML 1 ML VIAL IV PRN (01:32)
[2025-01-09] MEDS: SODIUM CHLORIDE 0.9% 1,000 ML IV ONE (01:45)
[2025-01-09] MEDS: IBUPROFEN 400 MG TAB PO PRN (02:52)
--- NOTE | 2025-01-09 03:36 | P.CNPUL ---
History of Present Illness Consult date: 01/09/25 Requesting physician: Christine Aleman Reason for consult: other (RSV bronchitis) Chief complaint: Cough, shortness of breath History of present illness: Patient is a 64-year-old female with past medical history significant for asthma/COPD, chronic oxygen dependence, tobacco smoker, hypertension, hyperlipidemia, coronary artery disease with previous PCI/stents, GERD, hypothyroidism. She follows with a head librarian in [place] for her asthma/COPD. Continues to smoke, and a pack of cigarettes usually lasts her 2 weeks. Normally, maintained on a combination of Breztri maintenance inhaler, Du o nebs [id number], and as needed Ventolin inhaler. She also is maintained on Dupixent injections. Recently, treated for pulmonary Aspergillus infection with voriconazole. Resident of [place], recently drove here to visit her adult children. Developed cough and difficulty in breathing approximately 1 to 2 weeks ago. She feels it is related to a wood-burning stove use to heat her children's home. Previously, took and completed a combination of Levaquin and prednisone pack. Also, been using her DuoNeb treatments as well as her as needed albuterol inhaler without much improvement in symptoms. Decided to come to the emergency room for evaluation early this morning. Workup including viral 4 Plex panel positive for RSV. Chest x-ray demonstrating hyperinflation consistent with COPD, chronic changes of the right upper lobe with right-sided volume loss. No acute cardiopulmonary process. Per the patient, this has been previously biopsied and determined to be benign. CBC with a WBC count 7.6, hemoglobin 13, platelets 306. CMP: Sodium 125, potassium 4.5, chloride 97, serum bicarb 23, BUN 11, creatinine 0.81, glucose 86. LFTs not elevated. Troponin less than 0.012. Patient currently being evaluated in the emergency department. Currently on 2 L/min nasal cannula. No notable respiratory distress. Endorses persistent cough with occasional green sputum production. Denies fevers, chills. Denies chest pain, hemoptysis, heart palpitations, syncopal events. Appetite has been fair. She is tolerating oral fluids. Denies nausea, vomiting or diarrhea. Current vital signs: Afebrile, heart rate 76 bpm, blood pressure 150/91 mmHg, nontachypneic, SpO2 reading 98% on 2 L/min nasal cannula. Review of Systems Constitutional: Reports fatigue, Denies chills, Denies fever, Denies poor appetite, Denies sweats, Denies weight gain, Denies weight loss Ears, nose, mouth and throat: Denies headache, Denies nasal congestion, Denies nasal discharge, Denies post-nasal drip, Denies sinus pain, Denies sinus pressure, Denies sore throat Cardiovascular: Reports dyspnea on exertion, Reports shortness of breath, Denies chest pain, Denies leg edema, Denies lightheadedness, Denies orthopnea, Denies palpitations, Denies paroxysmal nocturnal dyspnea, Denies syncope Respiratory: Reports as per HPI Gastrointestinal: Reports as per HPI Genitourinary: Denies dysuria Musculoskeletal: Denies limitation of motion Integumentary: Denies rash Neurological: Denies seizures, Denies syncope Psychiatric: Denies anxiety, Denies depression Past Medical History Past Medical History: COPD, Myocardial Infarction ([place]), Thyroid Disorder History of Any Multi-Drug Resistant Organisms: None Reported Past Surgical History: Heart Catheterization With Stent Past Psychological History: No Psychological Hx Reported Smoking Status: Current every day smoker Past Alcohol Use History: Daily Past Drug Use History: None Reported Medications and Allergies Home Medications Medication Instructions Recorded Confirmed Type ALPRAZolam [Xanax] 0.25 mg PO BID PRN 05/08/23 05/08/23 History Cholecalciferol (Vitamin D3) 125 mcg PO MOWEFR 05/08/23 05/08/23 History [Vitamin D3 (125 MCG = 5,000 IU)] Escitalopram [Lexapro] 20 mg PO DAILY 05/08/23 05/08/23 History Famotidine [Pepcid] 20 mg PO BID 05/08/23 05/08/23 History Famotidine [Pepcid] 20 mg PO BID 05/08/23 05/08/23 History Fluticasone/Vilanterol [Breo 1 puff INHALATION RT-DAILY 05/08/23 05/08/23 History Ellipta 100-25 Mcg Inhaler] Levothyroxine Sodium [Synthroid] 125 mg PO DAILY 05/08/23 05/08/23 History Metoprolol Succinate (ER) [Toprol 25 mg PO DAILY 05/08/23 05/08/23 History XL] Rosuvastatin Calcium 5 mg PO DAILY 05/08/23 05/08/23 History Ticagrelor [Brilinta] 90 mg PO BID 05/08/23 05/08/23 History Zinc Gluconate [Zinc] 50 mg PO DAILY 05/08/23 05/08/23 History buPROPion XL [Wellbutrin XL] 150 mg PO DAILY 05/08/23 05/08/23 History Ipratropium-Albuterol Nebulize 3 ml INHALATION RT-Q4H PRN #1 each 05/09/23 Rx [Duoneb 0.5 mg-3 mg/3 ml Soln] predniSONE 10 mg PO DIRECTED #40 tab 05/09/23 Rx Allergies Allergy/AdvReac Type Severity Reaction Status Date / Time No Known Allergies Allergy Verified 01/08/25 21:53 Physical Exam Vitals: Vital Signs Temp Pulse Resp BP Pulse Ox 01/09/25 00:33 76 20 150/91 98 01/08/25 23:52 84 01/08/25 23:45 80 01/08/25 21:49 98.5 F 96 26 H 141/78 96 Intake and Output 01/08/25 01/08/25 01/09/25 14:59 22:59 06:59 Other: Weight 49.895 kg GENERAL EXAM: Alert, 64-year-old female, on 2 L/min nasal cannula, comfortable in no apparent distress. HEAD: Normocephalic and atraumatic EYES: Normal reaction of pupils, equal size. NOSE: Clear with pink turbinates. THROAT: No erythema or exudates. NECK: No masses, no JVD. CHEST: No chest wall deformity. LUNGS: Equal air entry with expiratory wheezing heard bilaterally throughout. No conversational dyspnea or accessory muscle use. CVS: S1 and S2 normal with no audible murmur, regular rhythm. No extra heart sounds ABDOMEN: No hepatosplenomegaly, active bowel sounds, no guarding or rigidity. SPINE: No scoliosis or deformity SKIN: No rashes CENTRAL NERVOUS SYSTEM: No focal deficits, tone is normal in all 4 extremities. EXTREMITIES: There is no peripheral edema, clubbing, or cyanosis. Peripheral pulses are intact. Results - Laboratory Findings CBC and BMP: 01/08/25 22:15 01/08/25 22:15 Abnormal lab findings: Abnormal Labs 01/08/25 01/08/25 01/08/25 22:15 22:15 23:13 RBC 4.03 L MCH 32.5 H MPV 8.3 L Eosinophils # 0.02 L Sodium 125 L Chloride 97 L AST 39 H RSV (PCR) Detected A - Diagnostic Findings Chest x-ray: image reviewed Assessment and Plan Assessment: Acute RSV bronchitis Acute COPD/asthma exacerbation, secondary to above Acute on chronic dyspnea Acute hypoxemic respiratory failure, currently on 2 L/min nasal cannula Hypochloremic hyponatremia Essential hypertension History of hyperlipidemia History of coronary artery disease with previous PCI/stenting Gastroesophageal reflux disease History of hypothyroidism Chronic ongoing tobacco dependence Plan: Patient's medications, labs, chest x-ray reviewed No acute infiltrates or evidence of pneumonia Continue supportive care Continue combination of DuoNebs [id number], Symbicort inhaler, and IV Solu-Medrol Add Robitussin DM for antitussive As needed Tylenol for fevers Tolerating oral food and fluids Smoking cessation counseling performed Nicotine replacement offered We will continue to follow I have personally seen and examined the patient, performed the documentation and the assessment and plan as written. Number of minutes spent on the visit:20 This dictation was produced using [employer] dictation software please excuse gr ammatical errors Time with Patient: Greater than 30
[2025-01-09] MEDS ORDERED: IPRATROPIUM-ALBUTEROL 3 ML NEB INHALATION SCH (04:00)
[2025-01-09] MEDS: methylPREDNISolone SOD SUCCI 40 MG/ML 1 ML VIAL IV SCH (08:30)
[2025-01-09] MEDS: SYMBICORT 160-4.5 MCG INHALER INHALATION SCH (09:39)
[2025-01-09] MEDS: IPRATROPIUM-ALBUTEROL 3 ML NEB INHALATION SCH (09:39)
[2025-01-09] MEDS: ALPRAZolam 0.25 MG TAB PO PRN (10:08)
[2025-01-09] MEDS: LEVOTHYROXINE 125 MCG TAB PO SCH (10:09)
[2025-01-09] MEDS: NICOTINE 14MG/24HR PATCH TRANSDERM SCH (10:09)
[2025-01-09] MEDS: PANTOPRAZOLE 40 MG TABLET PO SCH (10:09)
[2025-01-09] MEDS: buPROPion XL 150 MG TAB.ER.24H PO SCH (10:09)
[2025-01-09] MEDS: methylPREDNISolone SOD SUCCI 125 MG/2 ML VIAL IV SCH (16:10)
--- NOTE | 2025-01-09 18:50 | P.HPIM ---
History of Present Illness H&P Date: 01/09/25 Chief Complaint: Difficulty in breathing Patient is a 64-year-old female with a past medical history of asthma/COPD, chronic hypoxic respiratory failure on home O2, currently everyday smoker and daily alcohol use, coronary artery disease with history of stent placement, hypo thyroidism and GERD presents today with complaints of shortness of breath for the past 1 to 2 weeks. Patient is from [place] and drove here to see her adult children. Prior to her problem she did obtain a prescription for prednisone and Levaquin in the event that her breathing got worse. Patient follows with her band saw operator in [place]. Patient started taking medications for the past 9 days prior to admission due to cough and increasing work of breathing. Her symptoms have not been improving. She has been having cough with greenish productive sputum. Denied any fever or chills. Denies any sick contacts. No leg swelling. No history of PE. No nausea vomiting abdominal pain or diarrhea. Patient was recently treated for pulmonary aspergillosis with voriconazole. Chest x-ray showed consolidation in the right upper lobe, similar when compared to prior exam in 2022 underlying neoplasia, Laboratory data showed WBC 7.5 hemoglobin 13.1 and platelets 306 sodium 125 potassium 4.7 chloride 97 bicarb is 23 BUN 11 creatinine 0.81 and blood sugar 78 and AST 39 ALT 23 and alk phos 48 troponin x 1 negative Procalcitonin level 0.09 and RSV PCR positive. Not excluded. Review of Systems Constitutional: Patient denies any fever or chills . Generalized weakness and fatigue.. Abdomen: Patient denied nausea vomiting and diarrhea and abdominal pain. Cardiovascular: Patient denies any chest pain or short of breath no palpitations. Respiratory: Complains of cough with greenish sputum production and shortness of breath Neurologic: Patient denied any numbness or tingling. no headache. Musculoskeletal: Patient denies any complaints of joint swelling or deformity. Skin: Negative Psychiatric: Negative Endocrine: No heat or cold intolerance. No recent weight gain. Genitourinary: No dysuria or hematuria. All other 14 point ROS negative except the above Past Medical History Past Medical History: COPD, Myocardial Infarction ([place]), Thyroid Disorder Additional Past Medical History / Comment(s): hyperthyroid- radioactive iodine History of Any Multi-Drug Resistant Organisms: None Reported Past Surgical History: Heart Catheterization With Stent Additional Past Surgical History / Comment(s): Stent x1 in 2020,x2 in 2023 Past Anesthesia/Blood Transfusion Reactions: No Reported Reaction Date of Last Stent Placement:: 2023 Past Psychological History: No Psychological Hx Reported Smoking Status: Current every day smoker Past Alcohol Use History: Daily Past Drug Use History: None Reported Medications and Allergies Home Medications Medication Instructions Recorded Confirmed Type ALPRAZolam [Xanax] 0.25 mg PO BID PRN 01/09/25 01/09/25 History Azithromycin [Zithromax] 500 mg PO MOWEFR 01/09/25 01/09/25 History Budesonide/Glycopyr/Formoterol 2 puff INHALATION RT-BID 01/09/25 01/09/25 History [Breztri Aerosphere Inhaler] Clopidogrel [Plavix] 75 mg PO Q2D@2100 01/09/25 01/09/25 History Dupilumab [Dupixent Pen] 300 mg SQ Q14D 01/09/25 01/09/25 History Ipratropium-Albuterol Nebulize 3 ml INHALATION RT-Q6H PRN 01/09/25 01/09/25 History [Duoneb 0.5 mg-3 mg/3 ml Soln] Levothyroxine Sodium [Synthroid] 62.5 mcg PO MOWEFR 01/09/25 01/09/25 History Levothyroxine Sodium [Synthroid] 125 mcg PO SUTUTHSA 01/09/25 01/09/25 History Metoprolol Succinate (ER) [Toprol 25 mg PO HS 01/09/25 01/09/25 History Xl] Omeprazole 20 mg PO DAILY 01/09/25 01/09/25 History Rosuvastatin [Crestor] 20 mg PO HS 01/09/25 01/09/25 History buPROPion XL [Wellbutrin XL] 150 mg PO DAILY 01/09/25 01/09/25 History Allergies Allergy/AdvReac Type Severity Reaction Status Date / Time No Known Allergies Allergy Verified 01/08/25 21:53 Physical Exam Vitals: Vital Signs Temp Pulse Pulse Resp BP BP Pulse Ox 01/09/25 09:52 84 01/09/25 09:39 84 01/09/25 07:21 98.5 F 58 L 17 159/85 95 01/09/25 02:56 20 01/09/25 02:23 97.7 F 80 19 157/77 94 L 01/09/25 00:33 76 20 150/91 98 01/08/25 23:52 84 01/08/25 23:45 80 01/08/25 21:49 98.5 F 96 26 H 141/78 96 Intake and Output 01/08/25 01/09/25 01/09/25 22:59 06:59 14:59 Other: # Voids 1 Weight 49.895 kg 49.895 kg PHYSICAL EXAMINATION: Patient is lying in the bed comfortably, no acute distress, awake alert and oriented.. HEENT: Normocephalic. Neck is supple. Pupils reactive. Nostrils clear. Oral cavity is moist. Neck reveals no JVD, carotid bruits, or thyromegaly. CHEST EXAMINATION: Trachea is central. Symmetrical expansion. Bilateral expiratory wheezing. Nonlabored breathing.. CARDIAC: Normal S1, S2 with no gallops. No murmurs ABDOMEN: Soft. Bowel sounds normal. No organomegaly. No abdominal bruits. Extremities: reveal no edema. No clubbing or cyanosis Neurologically awake, alert, oriented x3 with well-coordinated movements. No focal deficits noted Skin: No rash or skin lesions. Psychiatric: Coperative. Nonsuicidal Musculoskeletal: No joint swelling or deformity. Normal range of motion. Results CBC & Chem 7: 01/08/25 22:15 01/09/25 07:09 Labs: Abnormal Lab Results - Last 24 Hours (Table) 01/08/25 01/08/25 01/08/25 Range/Units 22:15 22:15 23:13 RBC 4.03 L (4.10-5.20) 10*6/uL MCH 32.5 H (27.0-32.0) pg MPV 8.3 L (9.5-12.2) fL Eosinophils # 0.02 L (0.04-0.35) 10*3/uL Sodium 125 L (137-145) mmol/L Chloride 97 L (98-107) mmol/L AST 39 H (14-36) U/L RSV (PCR) Detected A (Not Detectd) 01/09/25 Range/Units 07:09 RBC (4.10-5.20) 10*6/uL MCH (27.0-32.0) pg MPV (9.5-12.2) fL Eosinophils # (0.04-0.35) 10*3/uL Sodium 131 L (137-145) mmol/L Chloride (98-107) mmol/L AST (14-36) U/L RSV (PCR) (Not Detectd) Thrombosis Risk Factor Assmnt - DVT/VTE Prophylaxis DVT/VTE Prophylaxis: Pharmacologic Prophylaxis ordered - Choose All That Apply Any of the Below Risk Factors Present?: Yes Each Factor Represents 1 point: Abnormal pulmonary function (COPD) Other Risk Factors: Yes Each Risk Factor Represents 2 Points: Age 61-74 years Other congenital or acquired thrombophilia - If yes, enter type in comment: No Thrombosis Risk Factor Assessment Total Risk Factor Score: 3 Thrombosis Risk Factor Assessment Level: Moderate Risk Assessment and Plan Assessment: Acute COPD/asthma exacerbation Acute RSV infection Chronic hypoxemic respiratory failure requiring oxygen at 2 L via nasal cannula Hypoosmolar hyponatremia Right upper lobe consolidation similar compared to prior exam underlying neoplasia cannot be excluded. Coronary history of stent placement Hypothyroidism Currently everyday smoker Alcohol use disorder GERD GI and DVT prophylaxis with PPI and heparin subcu Plan: Patient will be currently on oxygen supplementation. Continue with IV Solu- Medrol 60 mg Q6 hourly along with DuoNebs and Symbicort. Continue with home me dications and follow-up closely. Droplet precautions. Pulmonary is on board.. Time with Patient: Greater than 30
[2025-01-09] MEDS: METOPROLOL SUCCINATE (ER) 25 MG TAB.ER.24H PO SCH (19:57)
[2025-01-09] MEDS: ATORVASTATIN 40 MG TAB PO SCH (19:57)
[2025-01-09] MEDS: CLOPIDOGREL 75 MG TAB PO SCH (19:57)
[2025-01-09] MEDS: HEPARIN SODIUM,PORCINE 5,000 UNIT/ML 1 ML VIAL SQ SCH (20:01)
[2025-01-09] MEDS: IPRATROPIUM-ALBUTEROL 3 ML NEB INHALATION PRN (23:35)
[2025-01-10] MEDS: LEVOTHYROXINE 125 MCG TAB PO SCH (06:33)
[2025-01-10 08:23] LABS: Basophils # (A) 0.02 X 10*3/uL (0.00-0.10); Basophils % (A) 0.2 %; Eosinophils # (A) 0 X 10*3/uL (0.04-0.35); Eosinophils % (A) 0 %; HCT 39.7 % (37.2-46.3); HGB 12.9 g/dL (12.0-15.0); Lymphocytes # (A) 0.66 X 10*3/uL (0.90-5.00); Lymphocytes % (A) 6.6 %; MCH 32.3 pg (27.0-32.0); MCHC 32.5 g/dL (32.0-37.0); MCV 99.3 FL (80.0-97.0); Mean Platelet Volume 8.8 FL (9.5-12.2); Monocytes # (A) 0.25 X 10*3/uL (0.20-1.00); Monocytes % (A) 2.5 %; NRBC Per 100 WBC 0 X 10*3/uL (0.00-0.01); Neutrophils # (A) 9.02 X 10*3/uL (1.80-7.70); Neutrophils % (A) 89.8 %; Platelet Count 303 X 10*3/uL (140-440); RDW 14.9 % (11.5-14.5); WBC 10.04 X 10*3/uL (4.50-10.00)
[2025-01-10 08:28] LABS: BUN/Creat Ratio 7.14 Ratio (12.00-20.00); Chloride 100 mmol/L (96-109); Glucose 161 mg/dL (70-110); Potassium 4.6 mmol/L (3.5-5.5); Sodium 135 mmol/L (135-145)
[2025-01-10 08:29] LABS: Calcium 9.5 mg/dL (8.7-10.3); Carbon Dioxide 24.7 mmol/L (21.6-31.8)
[2025-01-10] MEDS: guaiFENesin-DM 100-10MG/5ML 10 ML CUP PO PRN (09:04)
[2025-01-10] MEDS: AZITHROMYCIN 500 MG TAB PO SCH (09:05)
--- NOTE | 2025-01-10 11:15 | P.PN ---
Subjective Progress Note Date: 01/10/25 Patient is a 64-year-old female with past medical history significant for asthma/COPD, chronic oxygen dependence, tobacco smoker, hypertension, hyperlipidemia, coronary artery disease with previous PCI/stents, GERD, hypothyroidism. She follows with a geoint analyst in [place] for her asthma/COPD. Continues to smoke, and a pack of cigarettes usually lasts her 2 weeks. Normally, maintained on a combination of Breztri maintenance inhaler, Duo nebs [id number], and as needed Ventolin inhaler. She also is maintained on Dupixent injections. Recently, treated for pulmonary Aspergillus infection with voriconazole. Resident of [place], recently drove here to visit her adult children. Developed cough and difficulty in breathing approximately 1 to 2 weeks ago. She feels it is related to a wood-burning stove use to heat her children's home. Previously, took and completed a combination of Levaquin and prednisone pack. Also, been using her DuoNeb treatments as well as her as needed albuterol inhaler without much improvement in symptoms. Decided to come to the emergency room for evaluation early this morning. Workup including viral 4 Plex panel positive for RSV. Chest x-ray demonstrating hyperinflation consistent with COPD, chronic changes of the right upper lobe with right-sided volume loss. No acute cardiopulmonary process. Per the patient, this has been previously biopsied and determined to be benign. CBC with a WBC count 7.6, hemoglobin 13, platelets 306. CMP: Sodium 125, potassium 4.5, chloride 97, serum bicarb 23, BUN 11, creatinine 0.81, glucose 86. LFTs not elevated. Troponin less than 0.012. Patient currently being evaluated in the emergency department. Currently on 2 L/min nasal cannula. No notable respiratory distress. Endorses persistent cough with occasional green sputum production. Denies fevers, chills. Denies chest pain, hemoptysis, heart palpitations, syncopal events. Appetite has been fair. She is tolerating oral fluids. Denies nausea, vomiting or diarrhea. Current vital signs: Afebrile, heart rate 76 bpm, blood pressure 150/91 mmHg, nontachypneic, SpO2 reading 98% on 2 L/min nasal cannula. The patient is seen today January 10, 2025 in follow-up on the regular medical floor. She is currently sitting up in bed. Awake and alert in no acute distress. Feeling a bit better today compared to yesterday. Not quite back to her baseline. She is dyspneic with conversation, dyspneic with minimal exertion. She did have a copy of her pulmonary function test from [place] and her FEV1 value is only 34% of predicted, 0.8 L. She is currently maintaining O2 saturations in the 90s on 2 L/min per nasal cannula. White count 10.0. Hemoglobin 12.9. Platelets 303. Sodium 135. Potassium 4.6. Bicarb 25. BUN 5. Creatinine 0.7. Glucose 161. Procalcitonin was negative at 0.09. She remains on azithromycin 500 mg on Monday as an anti- inflammatory agent. Continued on DuoNeb inhalations, Symbicort, Solu-Medrol. Heparin for DVT prophylaxis. Objective - Vital Signs Vital signs: Vital Signs Temp 98.2 F 01/10/25 06:50 Pulse 90 01/10/25 08:39 Resp 17 01/10/25 07:45 BP 147/80 01/10/25 06:50 Pulse Ox 97 01/10/25 06:50 FiO2 Intake & Output 01/09/25 01/10/25 01/10/25 18:59 06:59 18:59 Intake Total 240 Balance 240 Intake: Oral 240 Other: Voiding Method Toilet Toilet Toilet # Voids 5 1 1 - Exam GENERAL EXAM: Alert, pleasant 64-year-old female, on 2 L nasal cannula, fairly comfortable in no apparent distress. HEAD: Normocephalic. EYES: Normal reaction of pupils, equal size. NOSE: Clear with pink turbinates. THROAT: No erythema or exudates. NECK: No masses, no JVD. CHEST: No chest wall deformity. LUNGS: Equal air entry with bilateral end expiratory wheeze, diminished. CVS: S1 and S2 normal with no audible murmur, regular rhythm. ABDOMEN: No hepatosplenomegaly, normal bowel sounds, no guarding or rigidity. SPINE: No scoliosis or deformity SKIN: No rashes CENTRAL NERVOUS SYSTEM: No focal deficits, tone is normal in all 4 extremities. EXTREMITIES: There is no peripheral edema. No clubbing, no cyanosis. Peripheral pulses are intact. - Labs CBC & Chem 7: 01/10/25 04:40 01/10/25 04:40 Labs: Abnormal Lab Results - Last 24 Hours (Table) 01/10/25 01/10/25 Range/Units 04:40 04:40 WBC 10.04 H (4.50-10.00) X 10*3/uL RBC 4.00 L (4.10-5.20) X 10*6/uL MCV 99.3 H (80.0-97.0) FL MCH 32.3 H (27.0-32.0) pg RDW 14.9 H (11.5-14.5) % MPV 8.8 L (9.5-12.2) FL Immature Gran # 0.09 H (0.00-0.04) X 10*3/uL Neutrophils # 9.02 H (1.80-7.70) X 10*3/uL Lymphocytes # 0.66 L (0.90-5.00) X 10*3/uL Eosinophils # 0 L (0.04-0.35) X 10*3/uL BUN 5.0 L (9.0-27.0) mg/dL BUN/Creatinine Ratio 7.14 L (12.00-20.00) Ratio Glucose 161 H (70-110) mg/dL Assessment and Plan Assessment: Acute RSV bronchitis Acute COPD exacerbation, secondary to above Acute on chronic dyspnea secondary to chronic obstructive pulmonary disease. FEV1 value 0.8 L / 34% of predicted Acute on chronic hypoxemic respiratory failure, he has home oxygen at 2 L/min nasal cannula Hypochloremic hyponatremia, recovered Essential hypertension History of hyperlipidemia History of coronary artery disease with previous PCI/stenting Gastroesophageal reflux disease History of hypothyroidism Chronic ongoing tobacco dependence Plan: The patient was seen and evaluated Labs and medications reviewed Her PFT results were reviewed, FEV1 value of 34% of predicted Educated regarding the importance of complete smoking cessation NicoDerm patch in place Continue DuoNeb inhalations, Symbicort Continue IV Solu-Medrol Heparin for DVT prophylaxis Robitussin as needed for cough Continued azithromycin Monday Increase her activity as tolerated Plan of care discussed with the patient Plan is for home to family at discharge This patient was seen independently by the pulmonary nurse practitioner addressing pulmonary issues I have personally seen and examined the patient, performed the documentation and the assessment and plan as written. Number of minutes spent on the visit: 25 Dictation was produced using [employer] dictation software. Please excuse any grammatical, word or spelling errors.
[2025-01-10] MEDS: guaiFENesin-DM 600/30MG 1 EACH TAB.ER.12H PO PRN (20:30)
[2025-01-11] MEDS: LEVOTHYROXINE 125 MCG TAB PO SCH (06:04)
[2025-01-11] MEDS: FORMOTEROL FUMARATE 20 MCG/2 ML NEBU INHALATION SCH (09:03)
[2025-01-11] MEDS: BUDESONIDE 1 MG/2 ML NEBU INHALATION SCH (09:03)
[2025-01-11 10:11] LABS: BUN/Creat Ratio 11.75 Ratio (12.00-20.00); Blood Urea Nitrogen 9.4 mg/dL (9.0-27.0); Calcium 9.4 mg/dL (8.7-10.3); Carbon Dioxide 27.3 mmol/L (21.6-31.8); Chloride 99 mmol/L (96-109); Glucose 143 mg/dL (70-110); Sodium 135 mmol/L (135-145)
[2025-01-11 10:22] LABS: Basophils # (A) 0.02 X 10*3/uL (0.00-0.10); Basophils % (A) 0.2 %; Eosinophils # (A) 0 X 10*3/uL (0.04-0.35); Eosinophils % (A) 0 %; HCT 39.9 % (37.2-46.3); HGB 12.8 g/dL (12.0-15.0); Lymphocytes # (A) 1.19 X 10*3/uL (0.90-5.00); Lymphocytes % (A) 11.5 %; MCH 32.3 pg (27.0-32.0); MCHC 32.1 g/dL (32.0-37.0); MCV 100.8 FL (80.0-97.0); Mean Platelet Volume 8.8 FL (9.5-12.2); Monocytes # (A) 0.43 X 10*3/uL (0.20-1.00); Monocytes % (A) 4.2 %; NRBC Per 100 WBC 0 X 10*3/uL (0.00-0.01); Neutrophils # (A) 8.65 X 10*3/uL (1.80-7.70); Neutrophils % (A) 83.4 %; Platelet Count 312 X 10*3/uL (140-440); RBC 3.96 X 10*6/uL (4.10-5.20); RDW 14.8 % (11.5-14.5); WBC 10.36 X 10*3/uL (4.50-10.00)
--- NOTE | 2025-01-11 10:55 | P.PN ---
Subjective Progress Note Date: 01/11/25 Patient is a 64-year-old female with past medical history significant for asthma/COPD, chronic oxygen dependence, tobacco smoker, hypertension, hyperlipidemia, coronary artery disease with previous PCI/stents, GERD, hypothyroidism. She follows with a clean up helper banquet in [place] for her asthma/COPD. Continues to smoke, and a pack of cigarettes usually lasts her 2 weeks. Normally, maintained on a combination of Breztri maintenance inhaler, Duo nebs [id number], and as needed Ventolin inhaler. She also is maintained on Dupixent injections. Recently, treated for pulmonary Aspergillus infection with voriconazole. Resident of [place], recently drove here to visit her adult children. Developed cough and difficulty in breathing approximately 1 to 2 weeks ago. She feels it is related to a wood-burning stove use to heat her children's home. Previously, took and completed a combination of Levaquin and prednisone pack. Also, been using her DuoNeb treatments as well as her as needed albuterol inhaler without much improvement in symptoms. Decided to come to the emergency room for evaluation early this morning. Workup including viral 4 Plex panel positive for RSV. Chest x-ray demonstrating hyperinflation consistent with COPD, chronic changes of the right upper lobe with right-sided volume loss. No acute cardiopulmonary process. Per the patient, this has been previously biopsied and determined to be benign. CBC with a WBC count 7.6, hemoglobin 13, platelets 306. CMP: Sodium 125, potassium 4.5, chloride 97, serum bicarb 23, BUN 11, creatinine 0.81, glucose 86. LFTs not elevated. Troponin less than 0.012. Patient currently being evaluated in the emergency department. Currently on 2 L/min nasal cannula. No notable respiratory distress. Endorses persistent cough with occasional green sputum production. Denies fevers, chills. Denies chest pain, hemoptysis, heart palpitations, syncopal events. Appetite has been fair. She is tolerating oral fluids. Denies nausea, vomiting or diarrhea. Current vital signs: Afebrile, heart rate 76 bpm, blood pressure 150/91 mmHg, nontachypneic, SpO2 reading 98% on 2 L/min nasal cannula. The patient is seen today January 10, 2025 in follow-up on the regular medical floor. She is currently sitting up in bed. Awake and alert in no acute distress. Feeling a bit better today compared to yesterday. Not quite back to her baseline. She is dyspneic with conversation, dyspneic with minimal exertion. She did have a copy of her pulmonary function test from [place] and her FEV1 value is only 34% of predicted, 0.8 L. She is currently maintaining O2 saturations in the 90s on 2 L/min per nasal cannula. White count 10.0. Hemoglobin 12.9. Platelets 303. Sodium 135. Potassium 4.6. Bicarb 25. BUN 5. Creatinine 0.7. Glucose 161. Procalcitonin was negative at 0.09. She remains on azithromycin 500 mg on Monday as an anti- inflammatory agent. Continued on DuoNeb inhalations, Symbicort, Solu-Medrol. Heparin for DVT prophylaxis. The patient is seen today January 11, 2025 in follow-up on the regular medical floor. She is awake and alert in no acute distress. Still with some dyspnea on exertion. Dyspneic with conversation. Maintaining O2 saturations in the 90s on 2 L/min per nasal cannula. No IV fluids. She remains on DuoNeb inhalations, Pulmicort and performance inhalations, Solu-Medrol. NicoDerm patch in place. Maintained on her azithromycin 250 mg Monday for anti-inflammat ory effects. Heparin for DVT prophylaxis. Continued on Robitussin and Mucinex as needed. White count 10.3. Hemoglobin 12.8. Platelets 312. Sodium 135. Potassium 5.0. Bicarb 27. BUN 9. Creatinine 0.8. Glucose 143. Objective - Vital Signs Vital signs: Vital Signs Temp 98.3 F 01/11/25 07:19 Pulse 92 01/11/25 09:31 Resp 16 01/11/25 07:35 BP 163/73 01/11/25 07:19 Pulse Ox 99 01/11/25 07:19 FiO2 Intake & Output 01/10/25 01/11/25 01/11/25 18:59 06:59 18:59 Intake Total 240 2190 Balance 240 2190 Intake: Oral 240 2190 Other: Voiding Method Toilet Toilet Toilet # Voids 3 3 - Exam GENERAL EXAM: Alert, 64-year-old female, on 2 L nasal cannula, comfortable in no apparent distress. HEAD: Normocephalic. EYES: Normal reaction of pupils, equal size. NOSE: Clear with pink turbinates. THROAT: No erythema or exudates. NECK: No masses, no JVD. CHEST: No chest wall deformity. LUNGS: Equal air entry with bilateral end expiratory wheeze, diminished. CVS: S1 and S2 normal with no audible murmur, regular rhythm. ABDOMEN: No hepatosplenomegaly, normal bowel sounds, no guarding or rigidity. SPINE: No scoliosis or deformity SKIN: No rashes CENTRAL NERVOUS SYSTEM: No focal deficits, tone is normal in all 4 extremities. EXTREMITIES: There is no peripheral edema. No clubbing, no cyanosis. Peripheral pulses are intact. - Labs CBC & Chem 7: 01/11/25 04:00 01/11/25 04:00 Labs: Abnormal Lab Results - Last 24 Hours (Table) 01/11/25 01/11/25 Range/Units 04:00 04:00 WBC 10.36 H (4.50-10.00) X 10*3/uL RBC 3.96 L (4.10-5.20) X 10*6/uL MCV 100.8 H (80.0-97.0) FL MCH 32.3 H (27.0-32.0) pg RDW 14.8 H (11.5-14.5) % MPV 8.8 L (9.5-12.2) FL Immature Gran # 0.07 H (0.00-0.04) X 10*3/uL Neutrophils # 8.65 H (1.80-7.70) X 10*3/uL Eosinophils # 0 L (0.04-0.35) X 10*3/uL BUN/Creatinine Ratio 11.75 L (12.00-20.00) Ratio Glucose 143 H (70-110) mg/dL Assessment and Plan Assessment: Acute RSV bronchitis Acute COPD exacerbation, secondary to above Acute on chronic dyspnea secondary to chronic obstructive pulmonary disease. FEV1 value 0.8 L / 34% of predicted Acute on chronic hypoxemic respiratory failure, has home oxygen at 2 L/min nasal cannula Hypochloremic hyponatremia, recovered Essential hypertension History of hyperlipidemia History of coronary artery disease with previous PCI/stenting Gastroesophageal reflux disease History of hypothyroidism Chronic ongoing tobacco dependence Plan: The patient was seen and evaluated Labs and medications reviewed Educated regarding smoking cessation NicoDerm patch in place Continue DuoNeb inhalations Continue Pulmicort and Perforomist inhalations Continue IV Solu-Medrol Heparin for DVT prophylaxis Robitussin as needed for cough Continued azithromycin Monday Increase her activity as tolerated Plan of care discussed with the patient Plan is for home to family at discharge The patient resides in [place] This patient was seen independently by the pulmonary nurse practitioner addressing pulmonary issues I have personally seen and examined the patient, performed the documentation and the assessment and plan as written. Number of minutes spent on the visit: 24 Dictation was produced using [employer] dictation software. Please excuse any grammatical, word or spelling errors.
[2025-01-11] MEDS: DUPILUMAB 300 MG/2 ML SQ SCH ×2 (17:16→18:13)
[2025-01-11] MEDS: SENNOSIDES 8.6 MG TAB PO SCH (18:12)
--- NOTE | 2025-01-11 19:54 | P.PN ---
Subjective Progress Note Date: 01/10/25 Patient is a 64-year-old female with a past medical history of asthma/COPD, chronic hypoxic respiratory failure on home O2, currently everyday smoker and daily alcohol use, coronary artery disease with history of stent placement, hypothyroidism and GERD presents today with complaints of shortness of breath for the past 1 to 2 weeks. Patient is from [place] and drove here to see her adult children. Prior to her problem she did obtain a prescription for prednisone and Levaquin in the event that her breathing got worse. Patient follows with her sample tester grinder in [place]. Patient started taking medications for the past 9 days prior to admission due to cough and increasing work of breathing. Her symptoms have not been improving. She has been having cough with greenish productive sputum. Denied any fever or chills. Denies any sick contacts. No leg swelling. No history of PE. No nausea vomiting abdominal pain or diarrhea. Patient was recently treated for pulmonary aspergillosis with voriconazole. Chest x-ray showed consolidation in the right upper lobe, similar when compared to prior exam in 2022 underlying neoplasia, Laboratory data showed WBC 7.5 hemoglobin 13.1 and platelets 306 sodium 125 potassium 4.7 chloride 97 bicarb is 23 BUN 11 creatinine 0.81 and blood sugar 78 and AST 39 ALT 23 and alk phos 48 troponin x 1 negative Procalcitonin level 0.09 and RSV PCR positive. Not excluded. 01/10/2025 Patient is currently lying in the bed. Awake alert and oriented x 3. Requiring oxygen 2 L via nasal cannula. Feels better. Still having bilateral diffuse wheezing. No fever no chills. Cough without any sputum production. Laboratory data showed WBC 10.0 hemoglobin 12.9 and platelets 303 sodium 135 potassium 4.6, chloride 100 bicarb is 24.7 BUN 5.0 and creatinine 0.7 and blood sugar 161. Pulmonary is on board. Current medications reviewed. Objective - Vital Signs Vital signs: Vital Signs Temp 98.0 F 01/10/25 14:25 Pulse 86 01/10/25 20:38 Resp 18 01/10/25 15:29 BP 128/67 01/10/25 14:25 Pulse Ox 98 01/10/25 14:25 FiO2 Intake & Output 01/10/25 01/10/25 01/11/25 06:59 18:59 06:59 Intake Total 240 Balance 240 Intake: Oral 240 Other: Voiding Method Toilet Toilet # Voids 1 3 - Exam PHYSICAL EXAMINATION: Patient is lying in the bed comfortably, no acute distress, awake alert and oriented.. HEENT: Normocephalic. Neck is supple. Pupils reactive. Nostrils clear. Oral cavity is moist. Neck reveals no JVD, carotid bruits, or thyromegaly. CHEST EXAMINATION: Trachea is central. Symmetrical expansion. Bilateral diffuse wheezing and scattered rhonchi. CARDIAC: Normal S1, S2 with no gallops. No murmurs ABDOMEN: Soft. Bowel sounds normal. No organomegaly. No abdominal bruits. Extremities: reveal no edema. No clubbing or cyanosis Neurologically awake, alert, oriented x3 with well-coordinated movements. No focal deficits noted Skin: No rash or skin lesions. Psychiatric: Coperative. Nonsuicidal Musculoskeletal: No joint swelling or deformity. Normal range of motion. - Labs CBC & Chem 7: 01/11/25 04:00 01/11/25 04:00 Labs: Abnormal Lab Results - Last 24 Hours (Table) 01/10/25 01/10/25 Range/Units 04:40 04:40 WBC 10.04 H (4.50-10.00) X 10*3/uL RBC 4.00 L (4.10-5.20) X 10*6/uL MCV 99.3 H (80.0-97.0) FL MCH 32.3 H (27.0-32.0) pg RDW 14.9 H (11.5-14.5) % MPV 8.8 L (9.5-12.2) FL Immature Gran # 0.09 H (0.00-0.04) X 10*3/uL Neutrophils # 9.02 H (1.80-7.70) X 10*3/uL Lymphocytes # 0.66 L (0.90-5.00) X 10*3/uL Eosinophils # 0 L (0.04-0.35) X 10*3/uL BUN 5.0 L (9.0-27.0) mg/dL BUN/Creatinine Ratio 7.14 L (12.00-20.00) Ratio Glucose 161 H (70-110) mg/dL Assessment and Plan Assessment: Acute COPD/asthma exacerbation Acute RSV infection Chronic hypoxemic respiratory failure requiring oxygen at 2 L via nasal cannula Hypoosmolar hyponatremia Right upper lobe consolidation similar compared to prior exam underlying neoplasia cannot be excluded. Coronary history of stent placement Hypothyroidism Currently everyday smoker Alcohol use disorder GERD GI and DVT prophylaxis with PPI and heparin subcu Plan: Patient will be currently on oxygen supplementation. Continue with IV Solu- Medrol 60 mg Q6 hourly along with DuoNebs, Pulmicort and Perforomist.. Continue with home medications and follow-up closely. Droplet precautions. Pulmonary is on board.. Time with Patient: Greater than 30
--- NOTE | 2025-01-11 19:54 | P.PN ---
Subjective Progress Note Date: 01/11/25 Patient is a 64-year-old female with a past medical history of asthma/COPD, chronic hypoxic respiratory failure on home O2, currently everyday smoker and daily alcohol use, coronary artery disease with history of stent placement, hypothyroidism and GERD presents today with complaints of shortness of breath for the past 1 to 2 weeks. Patient is from [place] and drove here to see her adult children. Prior to her problem she did obtain a prescription for prednisone and Levaquin in the event that her breathing got worse. Patient follows with her ip litigation associate in [place]. Patient started taking medications for the past 9 days prior to admission due to cough and increasing work of breathing. Her symptoms have not been improving. She has been having cough with greenish productive sputum. Denied any fever or chills. Denies any sick contacts. No leg swelling. No history of PE. No nausea vomiting abdominal pain or diarrhea. Patient was recently treated for pulmonary aspergillosis with voriconazole. Chest x-ray showed consolidation in the right upper lobe, similar when compared to prior exam in 2022 underlying neoplasia, Laboratory data showed WBC 7.5 hemoglobin 13.1 and platelets 306 sodium 125 potassium 4.7 chloride 97 bicarb is 23 BUN 11 creatinine 0.81 and blood sugar 78 and AST 39 ALT 23 and alk phos 48 troponin x 1 negative Procalcitonin level 0.09 and RSV PCR positive. Not excluded. 01/10/2025 Patient is currently lying in the bed. Awake alert and oriented x 3. Requiring oxygen 2 L via nasal cannula. Feels better. Still having bilateral diffuse wheezing. No fever no chills. Cough without any sputum production. Laboratory data showed WBC 10.0 hemoglobin 12.9 and platelets 303 sodium 135 potassium 4.6, chloride 100 bicarb is 24.7 BUN 5.0 and creatinine 0.7 and blood sugar 161. Pulmonary is on board. 01/11/2025 Patient is lying in the bed. Awake alert and oriented x 3. Shortness of breath is improving but still having exertional dyspnea. Currently on 2 L oxygen via nasal cannula. No complaints of fever or chills. Does have cough without any sputum production. Patient is being continued on antibiotics of azithromycin and IV Solu-Medrol, Pulmicort and Perforomist along with DuoNebs. Patient is also complaining of constipation. Laboratory data showed WBC 10.3 hemoglobin 12.8 and platelets 312 sodium 135 potassium 5.0 chloride 99 bicarb is 27.8 BUN 9.4 and creatinine 0.8 and blood sugar 83. Current medications reviewed. Objective - Vital Signs Vital signs: Vital Signs Temp 98.2 F 01/11/25 13:39 Pulse 80 01/11/25 16:37 Resp 16 01/11/25 13:39 BP 151/87 01/11/25 13:39 Pulse Ox 98 01/11/25 13:39 FiO2 Intake & Output 01/11/25 01/11/25 01/12/25 06:59 18:59 06:59 Intake Total 2190 650 Balance 2190 650 Intake: Oral 2190 650 Other: Voiding Method Toilet Toilet # Voids 3 3 - Exam PHYSICAL EXAMINATION: Patient is lying in the bed comfortably, no acute distress, awake alert and bandar ented.. HEENT: Normocephalic. Neck is supple. Pupils reactive. Nostrils clear. Oral cavity is moist. Neck reveals no JVD, carotid bruits, or thyromegaly. CHEST EXAMINATION: Trachea is central. Symmetrical expansion. Bilateral diffuse wheezing and scattered rhonchi. CARDIAC: Normal S1, S2 with no gallops. No murmurs ABDOMEN: Soft. Bowel sounds normal. No organomegaly. No abdominal bruits. Extremities: reveal no edema. No clubbing or cyanosis Neurologically awake, alert, oriented x3 with well-coordinated movements. No focal deficits noted Skin: No rash or skin lesions. Psychiatric: Coperative. Nonsuicidal Musculoskeletal: No joint swelling or deformity. Normal range of motion. - Labs CBC & Chem 7: 01/11/25 04:00 01/11/25 04:00 Labs: Abnormal Lab Results - Last 24 Hours (Table) 01/11/25 01/11/25 Range/Units 04:00 04:00 WBC 10.36 H (4.50-10.00) X 10*3/uL RBC 3.96 L (4.10-5.20) X 10*6/uL MCV 100.8 H (80.0-97.0) FL MCH 32.3 H (27.0-32.0) pg RDW 14.8 H (11.5-14.5) % MPV 8.8 L (9.5-12.2) FL Immature Gran # 0.07 H (0.00-0.04) X 10*3/uL Neutrophils # 8.65 H (1.80-7.70) X 10*3/uL Eosinophils # 0 L (0.04-0.35) X 10*3/uL BUN/Creatinine Ratio 11.75 L (12.00-20.00) Ratio Glucose 143 H (70-110) mg/dL Assessment and Plan Assessment: Acute COPD/asthma exacerbation Acute RSV infection Chronic hypoxemic respiratory failure requiring oxygen at 2 L via nasal cannula Hypoosmolar hyponatremia Right upper lobe consolidation similar compared to prior exam underlying neoplasia cannot be excluded. Coronary history of stent placement Hypothyroidism Currently everyday smoker Alcohol use disorder GERD GI and DVT prophylaxis with PPI and heparin subcu Plan: Patient will be currently on oxygen supplementation. Continue with IV Solu- Medrol 60 mg Q6 hourly along with DuoNebs, Pulmicort and Perforomist.. Improving slowly. Continue with home medications and follow-up closely. Droplet precautions. Stool softeners as needed. Pulmonary is on board.. Time with Patient: Greater than 30
--- NOTE | 2025-01-12 09:29 | P.PN ---
Subjective Progress Note Date: 01/12/25 Patient is a 64-year-old female with past medical history significant for asthma/COPD, chronic oxygen dependence, tobacco smoker, hypertension, hyperlipidemia, coronary artery disease with previous PCI/stents, GERD, hypothyroidism. She follows with a gyroscope technician in [place] for her asthma/COPD. Continues to smoke, and a pack of cigarettes usually lasts her 2 weeks. Normally, maintained on a combination of Breztri maintenance inhaler, Duo nebs [id number], and as needed Ventolin inhaler. She also is maintained on Dupixent injections. Recently, treated for pulmonary Aspergillus infection with voriconazole. Resident of [place], recently drove here to visit her adult children. Developed cough and difficulty in breathing approximately 1 to 2 weeks ago. She feels it is related to a wood-burning stove use to heat her children's home. Previously, took and completed a combination of Levaquin and prednisone pack. Also, been using her DuoNeb treatments as well as her as needed albuterol inhaler without much improvement in symptoms. Decided to come to the emergency room for evaluation early this morning. Workup including viral 4 Plex panel positive for RSV. Chest x-ray demonstrating hyperinflation consistent with COPD, chronic changes of the right upper lobe with right-sided volume loss. No acute cardiopulmonary process. Per the patient, this has been previously biopsied and determined to be benign. CBC with a WBC count 7.6, hemoglobin 13, platelets 306. CMP: Sodium 125, potassium 4.5, chloride 97, serum bicarb 23, BUN 11, creatinine 0.81, glucose 86. LFTs not elevated. Troponin less than 0.012. Patient currently being evaluated in the emergency department. Currently on 2 L/min nasal cannula. No notable respiratory distress. Endorses persistent cough with occasional green sputum production. Denies fevers, chills. Denies chest pain, hemoptysis, heart palpitations, syncopal events. Appetite has been fair. She is tolerating oral fluids. Denies nausea, vomiting or diarrhea. Current vital signs: Afebrile, heart rate 76 bpm, blood pressure 150/91 mmHg, nontachypneic, SpO2 reading 98% on 2 L/min nasal cannula. The patient is seen today January 10, 2025 in follow-up on the regular medical floor. She is currently sitting up in bed. Awake and alert in no acute distress. Feeling a bit better today compared to yesterday. Not quite back to her baseline. She is dyspneic with conversation, dyspneic with minimal exertion. She did have a copy of her pulmonary function test from [place] and her FEV1 value is only 34% of predicted, 0.8 L. She is currently maintaining O2 saturations in the 90s on 2 L/min per nasal cannula. White count 10.0. Hemoglobin 12.9. Platelets 303. Sodium 135. Potassium 4.6. Bicarb 25. BUN 5. Creatinine 0.7. Glucose 161. Procalcitonin was negative at 0.09. She remains on azithromycin 500 mg on Monday as an anti- inflammatory agent. Continued on DuoNeb inhalations, Symbicort, Solu-Medrol. Heparin for DVT prophylaxis. The patient is seen today January 11, 2025 in follow-up on the regular medical floor. She is awake and alert in no acute distress. Still with some dyspnea on exertion. Dyspneic with conversation. Maintaining O2 saturations in the 90s on 2 L/min per nasal cannula. No IV fluids. She remains on DuoNeb inhalations, Pulmicort and performance inhalations, Solu-Medrol. NicoDerm patch in place. Maintained on her azithromycin 250 mg Monday for anti-inflammat ory effects. Heparin for DVT prophylaxis. Continued on Robitussin and Mucinex as needed. White count 10.3. Hemoglobin 12.8. Platelets 312. Sodium 135. Potassium 5.0. Bicarb 27. BUN 9. Creatinine 0.8. Glucose 143. The patient is seen today January 12, 2025 in follow-up on the regular medical floor. She is sitting up in bed. Awake and alert in no acute distress. Maintaining good O2 saturations in the mid 90s on 2 L/min per nasal cannula. She has been afebrile. Hemodynamically stable. She is still somewhat bronchospastic and wheezing. Better today but not back to her baseline. She remains on DuoNeb inhalations, Pulmicort and Perforomist inhalations, Solu- Medrol. NicoDerm patch in place. Lovenox for DVT prophylaxis. Today's labs are pending. Objective - Vital Signs Vital signs: Vital Signs Temp 98.3 F 01/12/25 07:26 Pulse 88 04/20/25 08:09 Resp 17 01/12/25 07:26 BP 169/92 01/12/25 07:26 Pulse Ox 95 01/12/25 07:26 FiO2 Intake & Output 01/11/25 01/12/25 01/12/25 18:59 06:59 18:59 Intake Total 650 1650 Balance 650 1650 Intake: Oral 650 1650 Other: Voiding Method Toilet Toilet # Voids 3 6 - Exam GENERAL EXAM: Alert, 64-year-old female, sitting up in bed, on 2 L nasal cannula, in no apparent distress. HEAD: Normocephalic. EYES: Normal reaction of pupils, equal size. NOSE: Clear with pink turbinates. THROAT: No erythema or exudates. NECK: No masses, no JVD. CHEST: No chest wall deformity. LUNGS: Equal air entry with bilateral end expiratory wheeze, diminished. CVS: S1 and S2 normal with no audible murmur, regular rhythm. ABDOMEN: No hepatosplenomegaly, normal bowel sounds, no guarding or rigidity. SPINE: No scoliosis or deformity SKIN: No rashes CENTRAL NERVOUS SYSTEM: No focal deficits, tone is normal in all 4 extremities. EXTREMITIES: There is no peripheral edema. No clubbing, no cyanosis. Peripheral pulses are intact. - Labs CBC & Chem 7: 01/11/25 04:00 01/11/25 04:00 Labs: Abnormal Lab Results - Last 24 Hours (Table) 01/11/25 01/11/25 Range/Units 04:00 04:00 WBC 10.36 H (4.50-10.00) X 10*3/uL RBC 3.96 L (4.10-5.20) X 10*6/uL MCV 100.8 H (80.0-97.0) FL MCH 32.3 H (27.0-32.0) pg RDW 14.8 H (11.5-14.5) % MPV 8.8 L (9.5-12.2) FL Immature Gran # 0.07 H (0.00-0.04) X 10*3/uL Neutrophils # 8.65 H (1.80-7.70) X 10*3/uL Eosinophils # 0 L (0.04-0.35) X 10*3/uL BUN/Creatinine Ratio 11.75 L (12.00-20.00) Ratio Glucose 143 H (70-110) mg/dL Assessment and Plan Assessment: Acute RSV bronchitis Acute COPD exacerbation, secondary to above Acute on chronic dyspnea secondary to chronic obstructive pulmonary disease. FEV1 value 0.8 L / 34% of predicted Acute on chronic hypoxemic respiratory failure, has home oxygen at 2 L/min nasal cannula Hypochloremic hyponatremia, recovered Essential hypertension History of hyperlipidemia History of coronary artery disease with previous PCI/stenting Gastroesophageal reflux disease History of hypothyroidism Chronic ongoing tobacco dependence Plan: The patient was seen and evaluated Medications reviewed Again educated regarding smoking cessation NicoDerm patch in place Continue DuoNeb inhalations Continue Pulmicort and Perforomist inhalations Continue Solu-Medrol Heparin for DVT prophylaxis Continue azithromycin 250mg Monday Increase her activity as tolerated Plan of care discussed with the patient This patient was seen independently by the pulmonary nurse practitioner addressing pulmonary issues I have personally seen and examined the patient, performed the documentation and the assessment and plan as written. Number of minutes spent on the visit: 23 Dictation was produced using [employer] dictation software. Please excuse any grammatical, word or spelling errors.
[2025-01-12 10:21] LABS: Basophils # (A) 0.01 X 10*3/uL (0.00-0.10); Basophils % (A) 0.1 %; Eosinophils # (A) 0 X 10*3/uL (0.04-0.35); Eosinophils % (A) 0 %; HCT 40.1 % (37.2-46.3); HGB 12.7 g/dL (12.0-15.0); Lymphocytes # (A) 0.99 X 10*3/uL (0.90-5.00); Lymphocytes % (A) 11.2 %; MCH 31.8 pg (27.0-32.0); MCHC 31.7 g/dL (32.0-37.0); MCV 100.5 FL (80.0-97.0); Mean Platelet Volume 8.9 FL (9.5-12.2); Monocytes # (A) 0.36 X 10*3/uL (0.20-1.00); Monocytes % (A) 4.1 %; NRBC Per 100 WBC 0 X 10*3/uL (0.00-0.01); Neutrophils # (A) 7.45 X 10*3/uL (1.80-7.70); Neutrophils % (A) 83.9 %; Platelet Count 301 X 10*3/uL (140-440); RBC 3.99 X 10*6/uL (4.10-5.20); RDW 14.6 % (11.5-14.5); WBC 8.87 X 10*3/uL (4.50-10.00)
[2025-01-12 10:33] LABS: BUN/Creat Ratio 15.12 Ratio (12.00-20.00); Blood Urea Nitrogen 12.1 mg/dL (9.0-27.0); Calcium 9.5 mg/dL (8.7-10.3); Carbon Dioxide 24.6 mmol/L (21.6-31.8); Chloride 97 mmol/L (96-109); Glucose 130 mg/dL (70-110); Potassium 4.6 mmol/L (3.5-5.5); Sodium 134 mmol/L (135-145)
--- NOTE | 2025-01-12 13:58 | XR ---
EXAMINATION TYPE: XR chest 1V DATE OF EXAM: 01/12/2025 COMPARISON: 01/08/2025 CLINICAL INDICATION: Female, 64 years old with history of JEWELL; TECHNIQUE: Single frontal view of the chest is obtained. FINDINGS: There is stable marked pleural parenchymal scarring in the right upper lobe with volume los s and retraction of the right laney superiorly. The left lung remains clear. There is no pleural effusion or pneumothorax. The heart and pulmonary vasculature are normal. The osseous structures are intact. IMPRESSION: 1. Marked chronic pleural apical changes in the right upper lobe with severe volume loss as described above. 2. No acute changes compared to previous [facility], , 01/12/2025 1:56 PM
[2025-01-12] MEDS: ACETAMINOPHEN TAB 325 MG TAB PO PRN (21:32)
[2025-01-13] MEDS: AZITHROMYCIN 500 MG TAB PO SCH (08:29)
[2025-01-13] MEDS ORDERED: AZITHROMYCIN 500 MG TAB PO SCH (09:00)
[2025-01-13 09:08] LABS: Basophils # (A) 0.02 X 10*3/uL (0.00-0.10); Basophils % (A) 0.2 %; Eosinophils # (A) 0 X 10*3/uL (0.04-0.35); Eosinophils % (A) 0 %; HCT 41.1 % (37.2-46.3); HGB 13.4 g/dL (12.0-15.0); Lymphocytes # (A) 0.94 X 10*3/uL (0.90-5.00); Lymphocytes % (A) 10.1 %; MCH 32.3 pg (27.0-32.0); MCHC 32.6 g/dL (32.0-37.0); Mean Platelet Volume 9.1 FL (9.5-12.2); Monocytes # (A) 0.28 X 10*3/uL (0.20-1.00); NRBC Per 100 WBC 0 X 10*3/uL (0.00-0.01); Neutrophils # (A) 8.01 X 10*3/uL (1.80-7.70); Neutrophils % (A) 86.2 %; Platelet Count 325 X 10*3/uL (140-440); RBC 4.15 X 10*6/uL (4.10-5.20); RDW 14.6 % (11.5-14.5)
[2025-01-13 09:16] LABS: BUN/Creat Ratio 17.29 Ratio (12.00-20.00); Blood Urea Nitrogen 12.1 mg/dL (9.0-27.0); Calcium 9.8 mg/dL (8.7-10.3); Carbon Dioxide 28.9 mmol/L (21.6-31.8); Chloride 96 mmol/L (96-109); Glucose 140 mg/dL (70-110); Potassium 4.8 mmol/L (3.5-5.5); Sodium 134 mmol/L (135-145)
--- NOTE | 2025-01-13 15:35 | P.PN ---
Subjective Progress Note Date: 01/13/25 Patient is a 64-year-old female with past medical history significant for asthma/COPD, chronic oxygen dependence, tobacco smoker, hypertension, hyperlipidemia, coronary artery disease with previous PCI/stents, GERD, hypothyroidism. She follows with a airway traffic controller in [place] for her asthma/COPD. Continues to smoke, and a pack of cigarettes usually lasts her 2 weeks. Normally, maintained on a combination of Breztri maintenance inhaler, Duo nebs [id number], and as needed Ventolin inhaler. She also is maintained on Dupixent injections. Recently, treated for pulmonary Aspergillus infection with voriconazole. Resident of [place], recently drove here to visit her adult children. Developed cough and difficulty in breathing approximately 1 to 2 weeks ago. She feels it is related to a wood-burning stove use to heat her children's home. Previously, took and completed a combination of Levaquin and prednisone pack. Also, been using her DuoNeb treatments as well as her as needed albuterol inhaler without much improvement in symptoms. Decided to come to the emergency room for evaluation early this morning. Workup including viral 4 Plex panel positive for RSV. Chest x-ray demonstrating hyperinflation consistent with COPD, chronic changes of the right upper lobe with right-sided volume loss. No acute cardiopulmonary process. Per the patient, this has been previously biopsied and determined to be benign. CBC with a WBC count 7.6, hemoglobin 13, platelets 306. CMP: Sodium 125, potassium 4.5, chloride 97, serum bicarb 23, BUN 11, creatinine 0.81, glucose 86. LFTs not elevated. Troponin less than 0.012. Patient currently being evaluated in the emergency department. Currently on 2 L/min nasal cannula. No notable respiratory distress. Endorses persistent cough with occasional green sputum production. Denies fevers, chills. Denies chest pain, hemoptysis, heart palpitations, syncopal events. Appetite has been fair. She is tolerating oral fluids. Denies nausea, vomiting or diarrhea. Current vital signs: Afebrile, heart rate 76 bpm, blood pressure 150/91 mmHg, nontachypneic, SpO2 reading 98% on 2 L/min nasal cannula. The patient is seen today January 10, 2025 in follow-up on the regular medical floor. She is currently sitting up in bed. Awake and alert in no acute distress. Feeling a bit better today compared to yesterday. Not quite back to her baseline. She is dyspneic with conversation, dyspneic with minimal exertion. She did have a copy of her pulmonary function test from [place] and her FEV1 value is only 34% of predicted, 0.8 L. She is currently maintaining O2 saturations in the 90s on 2 L/min per nasal cannula. White count 10.0. Hemoglo bin 12.9. Platelets 303. Sodium 135. Potassium 4.6. Bicarb 25. BUN 5. Creatinine 0.7. Glucose 161. Procalcitonin was negative at 0.09. She remains on azithromycin 500 mg on Monday as an anti-inflammatory agent. Continued on DuoNeb inhalations, Symbicort, Solu-Medrol. Heparin for DVT prophylaxis. The patient is seen today January 11, 2025 in follow-up on the regular medical floor. She is awake and alert in no acute distress. Still with some dyspnea on exertion. Dyspneic with conversation. Maintaining O2 saturations in the 90s on 2 L/min per nasal cannula. No IV fluids. She remains on DuoNeb inhalations, Pulmicort and performance inhalations, Solu-Medrol. NicoDerm patch in place. Maintained on her azithromycin 250 mg Monday for anti-inflamm atory effects. Heparin for DVT prophylaxis. Continued on Robitussin and Mucinex as needed. White count 10.3. Hemoglobin 12.8. Platelets 312. Sodium 135. Potassium 5.0. Bicarb 27. BUN 9. Creatinine 0.8. Glucose 143. The patient is seen today January 12, 2025 in follow-up on the regular medical floor. She is sitting up in bed. Awake and alert in no acute distress. Maintaining good O2 saturations in the mid 90s on 2 L/min per nasal cannula. She has been afebrile. Hemodynamically stable. She is still somewhat bronchospastic and wheezing. Better today but not back to her baseline. She remains on DuoNeb inhalations, Pulmicort and Perforomist inhalations, Solu- Medrol. NicoDerm patch in place. Lovenox for DVT prophylaxis. Today's labs are pending. On 01/13/2025, I am seeing this patient for a follow-up. She is a angelita 64-year-old female patient with advanced COPD. She has been living in [place] and around 20 years ago she moved to [place]. She has a airway traffic controller in [place]. The patient is currently on Breztri. She has a previous Aspergillus lung infection treated with voriconazole and the patient has chronic scarring in the right upper lobe along with some volume loss. The patient's current hospitalization is for an acute COPD exacerbation related to an RSV infection. She continues to have a congested cough. Feeling better. Less short of breath. Remains on bronchodilators. Remains on IV Solu-Medrol 60 mg every 6 hours. Remains on her routine home medications. Robitussin was also added for cough and congestion. White cell count of 9.3 with a heme of 13.4 and a platelet count of 325. BUN is 12 with a creatinine of 0.7. Sodium levels at 134. Procalcitonin level was at 0.09. I reviewed the chest x-ray and there is no evidence of any airspace disease and there is chronic volume loss in the right upper lobe. Objective - Vital Signs Vital signs: Vital Signs Temp 98.2 F 01/13/25 07:40 Pulse 74 01/13/25 09:01 Resp 17 01/13/25 07:40 BP 134/73 01/13/25 07:40 Pulse Ox 97 01/13/25 07:40 FiO2 Intake & Output 01/12/25 01/13/25 01/13/25 18:59 06:59 18:59 Intake Total 2190 Balance 2190 Intake: Oral 2190 Other: Voiding Method Toilet Toilet # Voids 3 7 - Exam GENERAL EXAM: Alert, 64-year-old female, sitting up in bed, on 2 L nasal cannula, in no apparent distress. HEAD: Normocephalic. EYES: Normal reaction of pupils, equal size. NOSE: Clear with pink turbinates. THROAT: No erythema or exudates. NECK: No masses, no JVD. CHEST: No chest wall deformity. LUNGS: Equal air entry with bilateral end expiratory wheeze, diminished. CVS: S1 and S2 normal with no audible murmur, regular rhythm. ABDOMEN: No hepatosplenomegaly, normal bowel sounds, no guarding or rigidity. SPINE: No scoliosis or deformity SKIN: No rashes CENTRAL NERVOUS SYSTEM: No focal deficits, tone is normal in all 4 extremities. EXTREMITIES: There is no peripheral edema. No clubbing, no cyanosis. Peripheral pulses are intact. - Labs CBC & Chem 7: 01/13/25 03:07 01/13/25 03:07 Labs: Abnormal Lab Results - Last 24 Hours (Table) 01/13/25 01/13/25 Range/Units 03:07 03:07 MCV 99.0 H (80.0-97.0) FL MCH 32.3 H (27.0-32.0) pg RDW 14.6 H (11.5-14.5) % MPV 9.1 L (9.5-12.2) FL Immature Gran # 0.05 H (0.00-0.04) X 10*3/uL Neutrophils # 8.01 H (1.80-7.70) X 10*3/uL Eosinophils # 0 L (0.04-0.35) X 10*3/uL Sodium 134 L (135-145) mmol/L Glucose 140 H (70-110) mg/dL Assessment and Plan Plan: Acute RSV bronchitis, improving, remains on bronchodilators and steroids Acute COPD exacerbation, secondary to above, improving Acute on chronic dyspnea secondary to chronic obstructive pulmonary disease. FEV1 value 0.8 L / 34% of predicted Acute on chronic hypoxemic respiratory failure, has home oxygen at 2 L/min nasal cannula Chronic consolidation/scarring in the right upper lobe along with volume loss related to her previous Aspergillus infection of the right upper lobe, treated with voriconazole approximately 3 years ago to her airway traffic controller out in [place]. Hypochloremic hyponatremia, recovered Essential hypertension History of hyperlipidemia History of coronary artery disease with previous PCI/stenting Gastroesophageal reflux disease History of hypothyroidism Chronic ongoing tobacco dependence Plan: Patient continues to improve Again educated regarding smoking cessation NicoDerm patch in place Continue DuoNeb inhalations Continue Pulmicort and Perforomist inhalations, this can be transitioned to Rachel ztri 2 puffs twice a day Continue Solu-Medrol and transition the patient to prednisone burst taper at time of discharge Heparin for DVT prophylaxis Continue azithromycin 250mg Monday The patient has had multiple acute exacerbation and her airway traffic controller in [place] has opted to put her on Dupixent which is not a unreasonable option Increase her activity as tolerated Will continue to follow. Time with Patient: Greater than 30
[2025-01-14 00:55] VITALS: RESP 18
--- NOTE | 2025-01-14 05:01 | PN ---
PROGRESS NOTE SUBJECTIVE: The patient is a -tgvq-tud white female with RSV pneumonia, COPD exacerbation, tracheobronchitis. The patient wants to be discharged tomorrow so she can go back home to [place]. OBJECTIVE: CARDIOVASCULAR: S1, S2. LUNGS: Scattered wheeze and rhonchi. HEMATOLOGY: Negative Homans. PSYCH: Fair mood and affect. PLAN: Continue on breathing treatments. Biaxin 500 b.i.d., Decadron 6 mg daily for a week. Discharge home tomorrow. She wants to go back to [place]. MMMANJINDERL / IJN: [id number] /
[2025-01-14 07:58] VITALS: BP 169/68; TEMP 98
[2025-01-14 08:42] VITALS: PULSE 70
--- NOTE | 2025-01-17 12:16 | CDI ---
Documentation Clarification Form Date: 01/17/2025 11:53:33 AM From: Matilde Meehan Phone: Admit Date: 01/09/2025 01:32:00 AM Patient Name: Marisol Cochran Visit Number: [id number] Discharge Date: 01/14/2025 11:28:00 AM ATTENTION: The Clinical Documentation Specialists (CDI) and [facility] Coding Staff appreciate your assistance in clarifying documentation. Please respond to the clarification below the line at the bottom and electronically sign. The CDI & [facility] Coding staff will review the response and follow-up if needed. Please note: Queries are made part of the Legal Health Record. If you have any questions, please contact the author of this message via ITS. Doctor/Provider: Gumaro Little Conflicting documentation has been found in the medical record. As attending physician, please provide clarification. [AcuteRSVbronchitis is documented in pulmonology consult note on 01/09/2025] [RSV pneumonia,is documented in pn 01/14] History/Risk Factors: Patient is a 64-year-old female with a past medical history ofasthma/COPD,chronic hypoxic respiratory failureon home O2, currentlyeveryday smokerand dailyalcohol use,coronary artery diseasewith history ofstentplacement, hypothyroidismandGERDpresents today with complaints ofshortness of breath for the past 1 to 2 weeks. Clinical Indicators: H/P on 01/09 -Laboratory data showed WBC 7. 5 hemoglobin 13. 1 and platelets 306 sodium 125 potassium 4. 7 chloride 97 bicarb is 23 BUN 11 creatinine 0. 81 and blood sugar 78 and AST 39 ALT 23 and alk phos 48 troponin x 1negative Procalcitonin level 0. 09 andRSVPCR positive On 01/10 pn -he is currently sitting up in bed. Awake and alert inno acute distress. Feeling a bit better today compared to yesterday. Not quite back to her baseline. She isdyspneicwith conversation,dyspneicwith minimal exertion. She did [place] testfrom [place] and her FEV1 value is only 34% of predicted, 0. 8 L. She is currently maintaining O2 saturations in the 90s on 2 L/min per nasal cannula. White count 10. 0. Hemoglobin 12. 9. Platelets 303. Sodium 135. Potassium 4. 6. Bicarb 25. BUN 5. Creatinine 0. 7. Glucose 161. Procalcitonin was negative at 0. 09. She remains on azithromycin 500 mg on Monday as ananti- inflammatoryagent. Continued on DuoNeb inhalations, Symbicort, Solu-Medrol. On 01/11 -AcuteRSVbronchitis She is awake and alert inno acutedistress. Still with somedyspnea on exertion. Dyspneicwith conversation. Maintaining O2 saturations in the 90s on 2 L/min per nasal cannula. No IV fluids. She remains on DuoNeb inhalations, Pulmicort and performance inhalations, Solu-Medrol. AcuteRSVbronchitis, improving, remains on bronchodilators and steroids On 01/13 pn -Acute COPD exacerbation, secondary to above, improving Acute on chronicdyspneasecondary tochronic obstructive pulmonary disease. FEV1 value 0. 8 L / 34% of predicted Acute on chronic hypoxemic respiratory failure, has home oxygen at 2 L/min nasal cannula Chronic consolidation/scarringin the right upper lobe along with volume loss r elated to her previousAspergillusinfectionof the right upper lobe, treated with voriconazole approximately 3 years ago to her prepper out in [place] On 01/14 pn - The patient withRSV pneumonia,COPD exacerbation, tracheobronchitis. The patient wants to be discharged tomorrow so she can go back home Treatment: Continue with IV Solu-Medrol 60 mg Q6 hourly along with DuoNebs and Symbicort. Continue on breathing treatments. Biaxin 500 b. i. d. , Decadron 6 mg daily for a week. Please clarify which diagnosis is most appropriate: [ ] [Acute RSV bronchitis POA Yes ] [ ] [Acute RSV bronchitis POA No] [ ] [RSV Pneumonia POA Yes] [ ] [RSV Pneumonia POA No] [ ] [ RSV Bronchitis and pneumonia POA Yes] [ ] [RSV Bronchitis and pneumonia POA No ] [X ] Other (please specify) [ ] Unable to determine (Template Last Revised: November 2020) This is very frustrating. In every note by myself or my VICE PRESIDENT BUSINESS DEVELOPMENT or my partner, RSV bronchitis is listed as the diagnosis. The primary dictated RSV pneumonia. Why am I being asked to clarify the diagnosis. It should be the physician who dictated RSV pneumonia. Please direct this to him. Thanks. MILADYS
--- NOTE | 2025-01-21 16:03 | CDI ---
Documentation Clarification Form Date: 01/17/2025 11:53:33 AM From: Matilde Meehan Phone: Admit Date: 01/09/2025 01:32:00 AM Patient Name: Marisol Cochran Visit Number: [id number] Discharge Date: 01/14/2025 11:28:00 AM ATTENTION: The Clinical Documentation Specialists (CDI) and [facility] Coding Staff appreciate your assistance in clarifying documentation.Please respond to the clarification below the line at the bottom and electronically sign.The CDI [facility] Coding staff will review the response and follow-up if needed.Please note: Queries are made part of the Legal Health Record.If you have any questions, please contact the author of this message via ITS. Doctor/Provider: Flor Martinez Conflicting documentation has been found in the medical record.As attending physician, please provide clarification. [Acute RSV bronchitis is documented in Pulmonology consult note on 01/09/2025] [RSV pneumonia, is documented in pn 01/14 by Attending] History/Risk Factors: Patient is a 64-year-old female with a past medical history of asthma/COPD,chronic hypoxic respiratory failure on home O2, currently everyday smoker and daily alcohol use, coronary artery disease with history of stent placement, hypothyroidism and GERD presents today with complaints of shortness of breath for the past 1 to 2 weeks. Clinical Indicators: H/P on 01/09 -Laboratory data showed WBC 7. 5 hemoglobin 13. 1 and platelets 306 sodium 125 potassium 4. 7 chloride 97 bicarb is 23 BUN 11 creatinine 0. 81 and blood sugar 78 and AST 39 ALT 23 and alk phos 48 troponin x 1 negative Procalcitonin level 0. 09 and RSV PCR positive On 01/10 pn -he is currently sitting up in bed.Awake and alert in no acute distress.Feeling a bit better today compared to yesterday.Not quite back to her baseline.She is dyspneic with conversation, dyspneic with minimal exertion.She did have a copy of her pulmonary function test from [place] and her FEV1 value is only 34% of predicted, 0. 8 L. She is currently maintaining O2 saturations in the 90s on 2 L/min per nasal cannula.White count 10. 0. Hemoglobin 12. 9.Platelets 303.Sodium 135.Potassium 4. 6.Bicarb 25.BUN 5.Creatinine 0. 7.Glucose 161.Procalcitonin was negative at 0. 09.She remains on azithromycin 500 mg on Monday as an anti- inflammatory agent.Continued on DuoNeb inhalations, Symbicort, Solu-Medrol. On 01/11 -Acute RSV bronchitis She is awake and alert in no acute distress.Still with some dyspnea on exertion.Dyspneic with conversation.Maintaining O2 saturations in the 90s on 2 L/min per nasal cannula.No IV fluids.She remains on DuoNeb inhalations, Pulmicort and performance inhalations, Solu-Medrol. Acute RSV bronchitis, improving, remains on bronchodilators and steroids On 01/13 pn -Acute COPD exacerbation, secondary to above, improving Acute on chronic dyspnea secondary to chronic obstructive pulmonary disease. FEV1 value 0. 8 L / 34% of predicted Acute on chronic hypoxemic respiratory failure, has home oxygen at 2 L/min nasal cannula Chronic consolidation/scarring in the right upper lobe along with volume loss r elated to her previous Aspergillus infection of the right upper lobe, treated with voriconazole approximately 3 years ago to her strategic development manager out in [place] On 01/14 pn - The patient with RSV pneumonia, COPD exacerbation, tracheobronchitis.The patient wants to be discharged tomorrow so she can go back home Treatment: Continue with IV Solu-Medrol 60 mg Q6 hourly along with DuoNebs and Symbicort.Continue on breathing treatments.Biaxin 500 b. i. d. , Decadron 6 mg daily for a week. Please clarify which diagnosis is most appropriate: [ ] [Acute RSV bronchitis POA Yes ] [ ] [Acute RSV bronchitis POA No] [ ] [RSV Pneumonia POA Yes] [ ] [RSV Pneumonia POA No] [ ] [ RSV Bronchitis and pneumonia POA Yes] [ ] [RSV Bronchitis and pneumonia POA No ] [ ] Other (please specify) [ ] Unable to determine (Template Last Revised: November 2020) MTDD
--- NOTE | 2025-01-27 14:04 | CDI ---
Documentation Clarification Form Date: 01/27/2025 11:53:33 AM From: Matilde Meehan Phone: Admit Date: 01/09/2025 01:32:00 AM Patient Name: Marisol Cochran Visit Number: [id number] Discharge Date: 01/14/2025 11:28:00 AM ATTENTION: The Clinical Documentation Specialists (CDI) and [facility] Coding Staff appreciate your assistance in clarifying documentation.Please respond to the clarification below the line at the bottom and electronically sign.The CDI [facility] Coding staff will review the response and follow-up if needed.Please note: Queries are made part of the Legal Health Record.If you have any questions, please contact the author of this message via ITS. Doctor/Provider: Flor Graff - query signed without answer Conflicting documentation has been found in the medical record.As attending physician, please provide clarification. [Acute RSV bronchitis is documented in Pulmonology consult note on 01/09/2025] [RSV pneumonia, is documented in pn 01/14 by Attending] History/Risk Factors: Patient is a 64-year-old female with a past medical history of asthma/COPD,chronic hypoxic respiratory failure on home O2, currently everyday smoker and daily alcohol use, coronary artery disease with history of stent placement, hypothyroidism and GERD presents today with complaints of shortness of breath for the past 1 to 2 weeks. Clinical Indicators: H/P on 01/09 -Laboratory data showed WBC 7. 5 hemoglobin 13. 1 and platelets 306 sodium 125 potassium 4. 7 chloride 97 bicarb is 23 BUN 11 creatinine 0. 81 and blood sugar 78 and AST 39 ALT 23 and alk phos 48 troponin x 1 negative Procalcitonin level 0. 09 and RSV PCR positive On 01/10 pn -he is currently sitting up in bed.Awake and alert in no acute distress.Feeling a bit better today compared to yesterday.Not quite back to her baseline.She is dyspneic with conversation, dyspneic with minimal exertion.She did have a copy of her pulmonary function test from [place] and her FEV1 value is only 34% of predicted, 0. 8 L. She is currently maintaining O2 saturations in the 90s on 2 L/min per nasal cannula.White count 10. 0. Hemoglobin 12. 9.Platelets 303.Sodium 135.Potassium 4. 6.Bicarb 25.BUN 5.Creatinine 0. 7.Glucose 161.Procalcitonin was negative at 0. 09.She remains on azithromycin 500 mg on Monday as an anti- inflammatory agent.Continued on DuoNeb inhalations, Symbicort, Solu-Medrol. On 01/11 -Acute RSV bronchitis She is awake and alert in no acute distress.Still with some dyspnea on exertion.Dyspneic with conversation.Maintaining O2 saturations in the 90s on 2 L/min per nasal cannula.No IV fluids.She remains on DuoNeb inhalations, Pulmicort and performance inhalations, Solu-Medrol. Acute RSV bronchitis, improving, remains on bronchodilators and steroids On 01/13 pn -Acute COPD exacerbation, secondary to above, improving Acute on chronic dyspnea secondary to chronic obstructive pulmonary disease. FEV1 value 0. 8 L / 34% of predicted Acute on chronic hypoxemic respiratory failure, has home oxygen at 2 L/min nasal cannula Chronic consolidation/scarring in the right upper lobe along with volume loss r elated to her previous Aspergillus infection of the right upper lobe, treated with voriconazole approximately 3 years ago to her dedenter out in [place] On 01/14 pn - The patient with RSV pneumonia, COPD exacerbation, tracheobronchitis.The patient wants to be discharged tomorrow so she can go back home Treatment: Continue with IV Solu-Medrol 60 mg Q6 hourly along with DuoNebs and Symbicort.Continue on breathing treatments.Biaxin 500 b. i. d. , Decadron 6 mg daily for a week. Please clarify which diagnosis is most appropriate: [ ] [Acute RSV bronchitis POA Yes ] [ ] [Acute RSV bronchitis POA No] [ ] [RSV Pneumonia POA Yes] [ ] [RSV Pneumonia POA No] [ ] [ RSV Bronchitis and pneumonia POA Yes] [ ] [RSV Bronchitis and pneumonia POA No ] [ ] Other (please specify) [ ] Unable to determine (Template Last Revised: November 2020) MARIUMD
--- NOTE | 2025-01-29 16:36 | PN ---
PROGRESS NOTE RSV pneumonia present on admission. MMODL / IJN: [id number] /
== END 2025-01-14 11:28 | disposition home or self-care (01) | DRG 193 ==
LOC: EC 21:47 → 4SSUR 01-09 01:32
PROVIDERS: ADMIT Family Medicine; ATTEND Family Medicine
DX: J12.1 Respiratory syncytial virus pneumonia (principal); J96.21 Acute and chronic respiratory failure with hypoxia; J44.1 Chronic obstructive pulmonary disease with (acute) exacerbation; E87.1 Hypo-osmolality and hyponatremia; J45.901 Unspecified asthma with (acute) exacerbation; J44.0 Chronic obstructive pulmonary disease with (acute) lower respiratory infection; E03.9 Hypothyroidism, unspecified; I10 Essential (primary) hypertension; F10.10 Alcohol abuse, uncomplicated; K21.9 Gastro-esophageal reflux disease without esophagitis; F17.210 Nicotine dependence, cigarettes, uncomplicated; I25.10 Atherosclerotic heart disease of native coronary artery without angina pectoris; E87.8 Other disorders of electrolyte and fluid balance, not elsewhere classified; Z99.81 Dependence on supplemental oxygen; Z95.5 Presence of coronary angioplasty implant and graft; Z79.890 Hormone replacement therapy; I25.2 Old myocardial infarction; Z79.899 Other long term (current) drug therapy; Z79.02 Long term (current) use of antithrombotics/antiplatelets
CPT/HCPCS: 36415; 71045; 71046; 80048; 80053; 82607; 82747; 83605; 84145; 84295; 84484; 85025; 87636; 93005; 94640; 96361; 96365; 96375; 99285